=== PATIENT | male | born 1940 ===

== ENCOUNTER 2022-11-23 20:12 | Emergency (ER) | payer BC, MEDICARE ==
[2022-11-23 20:39] LABS: BASOPHILS # (AUTO) 0.1 10^3/uL (0.0-0.1); BASOPHILS % (AUTO) 1.6 %; EOSINOPHILS # (AUTO) 0.4 10^3/uL (0.0-0.7); EOSINOPHILS % (AUTO) 5.9 %; HCT - HEMATOCRIT 41.6 % (42.0-52.0); HGB - HEMOGLOBIN 13.8 g/dL (14.0-18.0); LYMPHOCYTES # (AUTO) 1.5 10^3/uL (1.5-3.5); LYMPHOCYTES % (AUTO) 24.3 %; MEAN CORPUSCULAR HEMOGLOBIN 30.6 pg (27.0-31.0); MEAN CORPUSCULAR HGB CONC 33.2 g/dL (32.0-36.0); MEAN CORPUSCULAR VOLUME 92.2 fL (80.0-94.0); MEAN PLATELET VOLUME 11.2 fL (7.4-11.4); MONOCYTES # (AUTO) 0.7 10^3/uL (0.0-1.0); MONOCYTES % (AUTO) 11.3 %; NEUTROPHILS # (AUTO) 3.5 10^3/uL (1.5-6.6); NEUTROPHILS % (AUTO) 56.4 %; PLT - PLATELET COUNT 161 10^3/uL (130-450); RED BLOOD COUNT 4.51 10^6/uL (4.70-6.10); RED CELL DISTRIBUTION WIDTH 13.8 % (12.0-15.0); WHITE BLOOD COUNT 6.2 x10^3/uL (4.8-10.8)
--- NOTE | 2022-11-23 20:42 | ED Physician Documentation ---
PD HPI ABD PAIN - Stated complaint Stated Complaint: RECTAL BLEEDING - Chief complaint Chief Complaint: Abd Pain - History obtained from History obtained from: Patient - Additional information Additional information: 82-year-old retired [employer] has a history of spontaneous esophageal perforation requiring transfusion but no surgical therapy about a year ago. Today started develop lower abdominal cramping and dark red blood per rectum around noon. No history of abdominal surgeries. No heart problems. Not anticoagulated but does take a baby aspirin daily. PD PAST MEDICAL HISTORY - Present Medications Home Medications: Ambulatory Orders Medication Instructions Recorded Confirmed Aspirin EC [Ecotrin] 81 mg PO DAILY 11/23/22 11/23/22 Ciprofloxacin HCl [Cipro] 500 mg PO BID #14 tablet 11/23/22 Levothyroxine [Synthroid] 25 mcg PO QDAC 11/23/22 11/23/22 Pantoprazole Sodium [Protonix] 40 mg PO DAILY 11/23/22 11/23/22 lisinopriL [Lisinopril] 10 mg PO DAILY 11/23/22 11/23/22 metroNIDAZOLE [Flagyl] 500 mg PO TID 7 Days #21 tablet 11/23/22 - Allergies Allergies/Adverse Reactions: Allergies Allergy/AdvReac Type Severity Reaction Status Date / Time No Known Drug Allergies Allergy Verified 11/23/22 20:22 PD ED PE NORMAL - Vitals Vital signs reviewed: Yes - General General: Alert and oriented X 3, No acute distress - Cardiac Cardiac: RRR, No murmur - Respiratory Respiratory: No respiratory distress, Clear bilaterally - Abdomen Abdomen: Normal bowel sounds, Soft, Non tender - Rectal Rectal: Other (Small amount of brown stool in the vault, no gross blood) - Neuro Neuro: Alert and oriented X 3, Normal speech Results - Vitals Vitals: Vital Signs - 24 hr 11/23/22 11/23/22 11/23/22 20:13 20:29 21:22 Temperature 37.1 C Heart Rate 91 Respiratory 17 18 16 Rate Blood Pressure 166/106 H O2 Saturation 99 11/23/22 11/23/22 11/23/22 21:40 21:58 22:40 Temperature Heart Rate 72 74 Respiratory 16 16 17 Rate Blood Pressure O2 Saturation 100 99 Oxygen O2 Source Room air - Labs Labs: Microbiology 11/23/22 20:40 Occult Blood - Final Stool Laboratory Tests 11/23/22 11/23/22 11/23/22 20:33 20:33 20:33 WBC 6.2 RBC 4.51 L Hgb 13.8 L Hct 41.6 L MCV 92.2 MCH 30.6 MCHC 33.2 RDW 13.8 Plt Count 161 MPV 11.2 Neut # (Auto) 3.5 Lymph # (Auto) 1.5 [place] # (Auto) 0.7 Eos # (Auto) 0.4 Baso # (Auto) 0.1 Absolute Nucleated RBC 0.00 Nucleated RBC % 0.0 PT 11.7 INR 1.0 Sodium Potassium Chloride Carbon Dioxide Anion Gap BUN Creatinine Estimated GFR (MDRD) Glucose Calcium Total Bilirubin AST ALT Alkaline Phosphatase Total Protein Albumin Globulin Albumin/Globulin Ratio Lipase Blood Type O POSITIVE Blood Type Recheck Antibody Screen NEGATIVE 11/23/22 11/23/22 11/23/22 20:33 21:30 22:38 WBC RBC Hgb 13.8 L Hct 42.5 MCV MCH MCHC RDW Plt Count MPV Neut # (Auto) Lymph # (Auto) [place] # (Auto) Eos # (Auto) Baso # (Auto) Absolute Nucleated RBC Nucleated RBC % PT INR Sodium 137 Potassium 3.9 Chloride 103 Carbon Dioxide 24 Anion Gap 10.0 BUN 27 H Creatinine 1.3 H Estimated GFR (MDRD) 53 L Glucose 99 Calcium 9.0 Total Bilirubin 0.8 AST 71 H ALT 22 Alkaline Phosphatase 51 Total Protein 7.6 Albumin 3.9 Globulin 3.7 Albumin/Globulin Ratio 1.1 Lipase 34 Blood Type Blood Type Recheck O POSITIVE Antibody Screen - Rads (name of study) CT of the abdomen pelvis with IV contrast showing proctitis Relevant Findings:: Final report received, EMP independent interpretation of test PD Medical Decision Making - ED course ED course: 82-year-old gentleman presents with a lower GI bleed. Both by symptomatology and exam this is most consistent with probably colitis, less likely a diverticular bleed. CT of the abdomen and pelvis is consistent with lower colitis/proctitis. I confirmed with the patient, although he has had prostate cancer, he had a prostatectomy but no radiation. Initial H&H is reassuring at 13.8/41.6. INR is normal. Mild renal dysfunction, no priors for comparison. He did not have any gross blood per rectum while in the department.Discussed with the patient, his last colonoscopy was approximately 2 years ago. Departure - Departure Disposition: 01 Home, Self Care Clinical Impression: Lower GI bleeding, Proctitis Condition: Good Record reviewed to determine appropriate education?: Yes Instructions: ED Gastroenteritis Bacterial Prescriptions: Ciprofloxacin HCl [Cipro] 500 mg PO BID #14 tablet metroNIDAZOLE [Flagyl] 500 mg PO TID 7 Days #21 tablet Comments: You are seen today for lower GI bleeding, looks like it was related to proctitis/colitis. For this we are treating with Cipro and Flagyl. Your initial hemoglobin was 13.8. That dID not change at all on recheck after 2 hours and remained 13.8. Return tomorrow for recheck if still having ongoing bleeding. Sooner if worse. Follow-up with your primary care physician, next available appointment.
[2022-11-23 20:47] LABS: PT - PROTHROMBIN TIME 11.7 secs (9.9-12.6)
[2022-11-23 20:53] LABS: ALBUMIN 3.9 g/dL (3.2-5.5); ALBUMIN/GLOBULIN RATIO 1.1 (1.0-2.2); BILIRUBIN,TOTAL 0.8 mg/dL (0.2-1.0); CREATININE 1.3 mg/dL (0.6-1.2); POTASSIUM 3.9 mmol/L (3.5-5.0); TOTAL PROTEIN 7.6 g/dL (6.7-8.2)
[2022-11-23] MEDS ORDERED: iohexoL-300 100 ML VIAL ONE (21:11)
--- NOTE | 2022-11-23 22:26 | CT Report ---
PROCEDURE: ABDOMEN/PELVIS W INDICATIONS: Rectal bleed, sounds like colitis or diverticular CONTRAST: 100mL Omni 300 TECHNIQUE: After the administration of IV contrast, 5 mm thick sections acquired from the diaphragms to the symp hysis. 5 mm thick coronal and sagittal reformats were acquired. For radiation dose reduction, the f ollowing was used: automated exposure control, adjustment of mA and/or kV according to patient size. COMPARISON: None FINDINGS: Image quality: Good There is metallic artifact in the pelvis however. Lower chest: Basal scarring/atelectasis, with possible superimposed reticular changes. Suspected gran ulomas and pleural thickening these are probably nonacute. Small hiatal hernia and fluid in the dista l esophagus. Normal heart size overall. Solid organs: Liver appears unremarkable. Gallbladder is unremarkable. No pathologic dilation of the biliary tree or pancreatic duct. No splenomegaly. No adrenal nodules. Bilateral renal cortical thinni ng, without hydronephrosis. Suspected renal cysts. Vessels and lymph nodes: No pathologic adenopathy by size criteria. No abdominal aortic aneurysm. Bowel and peritoneum: No evidence of small bowel obstruction. Possible mild rectal wall thickening. T here are also colonic diverticula. No evidence of a drainable abscess or pathologic ascites. Body wall: Anterior abdominal wall postsurgical changes. Pelvis: Obscured by metallic artifact. Small fat-containing left inguinal hernia. Penile prosthesis i mplants. Bladder is obscured. Prostate is obscured. Bones: Bilateral hip arthroplasties. Scattered degenerative changes. IMPRESSION: Possible infectious or inflammatory proctitis. There are also colonic diverticula. Please correlate w ith age-appropriate colonoscopy results. Other findings as imaging limitations as above. Reviewed by: Bradley Valencia MD on 11/23/2022 10:25 PM PDT Approved by: Bradley Valencia MD on 11/23/2022 10:25 PM PDT Station ID: [id number]
[2022-11-23] MEDS ORDERED: metroNIDAZOLE 250 MG TABLET PO STA (22:40)
[2022-11-23] MEDS ORDERED: CIPROFLOXACIN 250 MG TABLET PO STA (22:40)
[2022-11-23 22:41] LABS: HCT - HEMATOCRIT 42.5 % (42.0-52.0); HGB - HEMOGLOBIN 13.8 g/dL (14.0-18.0)
[2022-11-23 23:05] VITALS: BP 157/108
[2022-11-24] MEDS ORDERED: iohexoL-300 100 ML VIAL IVP ONE (03:06)
== END 2022-11-23 23:05 | disposition home or self-care (01) ==
LOC: ED 20:12
DX: K92.2 Gastrointestinal hemorrhage, unspecified (principal); K62.89 Other specified diseases of anus and rectum; N28.9 Disorder of kidney and ureter, unspecified
CPT/HCPCS: 36415; 74177; 80053; 82272; 83690; 85014; 85018; 85025; 85610; 86850; 86900; 86901; 99284; A9270; Q9967

== ENCOUNTER 2023-01-03 17:26 | Emergency (ER) | payer MEDICARE, BC ==
[2023-01-03 17:50] LABS: BASOPHILS # (AUTO) 0.1 10^3/uL (0.0-0.1); BASOPHILS % (AUTO) 0.5 %; EOSINOPHILS # (AUTO) 0.2 10^3/uL (0.0-0.7); EOSINOPHILS % (AUTO) 1.2 %; HCT - HEMATOCRIT 45.6 % (42.0-52.0); HGB - HEMOGLOBIN 14.9 g/dL (14.0-18.0); LYMPHOCYTES # (AUTO) 0.6 10^3/uL (1.5-3.5); LYMPHOCYTES % (AUTO) 4.4 %; MEAN CORPUSCULAR HEMOGLOBIN 30.3 pg (27.0-31.0); MEAN CORPUSCULAR HGB CONC 32.7 g/dL (32.0-36.0); MEAN CORPUSCULAR VOLUME 92.7 fL (80.0-94.0); MEAN PLATELET VOLUME 11.5 fL (7.4-11.4); MONOCYTES # (AUTO) 1.5 10^3/uL (0.0-1.0); MONOCYTES % (AUTO) 10.9 %; NEUTROPHILS # (AUTO) 11.3 10^3/uL (1.5-6.6); NEUTROPHILS % (AUTO) 82.6 %; PLT - PLATELET COUNT 165 10^3/uL (130-450); RED BLOOD COUNT 4.92 10^6/uL (4.70-6.10); RED CELL DISTRIBUTION WIDTH 13.9 % (12.0-15.0); WHITE BLOOD COUNT 13.7 x10^3/uL (4.8-10.8)
--- NOTE | 2023-01-03 17:55 | ED Physician Documentation ---
PD HPI ABD PAIN - Stated complaint Stated Complaint: VOMITING - Chief complaint Chief Complaint: Abd Pain - History obtained from History obtained from: Patient, Family - History of Present Illness Timing - onset: Today Timing - duration: Hours (3) Timing - details: Abrupt onset Pain level max: 10 Pain level now: 6 Quality: Aching, Dull Location: All over / everywhere Radiation: No: Chest, , Lower back, Left flank, Left shoulder, Right flank, Right shoulder, Upper back Improved by: Vomiting Worsened by: Other (nothing) Associated symptoms: Nausea, Vomiting. No: Fever, Hematemesis, Diarrhea, Constipation, Melena, Hematochezia, Dysuria, Hematuria Recently seen: Not recently seen - Additional information Additional information: 82-year-old male presents the emergency department with sudden onset abdominal pain followed by multiple episodes of vomiting. No diarrhea or constipation. He has had a history of an appendectomy in the past, radical prostatectomy from a [employer] [place] robot and a umbilical hernia with mesh repair. No fevers. No chills. No blood in the vomit. Review of Systems Constitutional: denies: Fever, Chills Respiratory: denies: Cough GI: reports: Nausea, Vomiting. denies: Diarrhea, Hematemesis, Bloody / black stool PD PAST MEDICAL HISTORY - Past Medical History Cardiovascular: Hypertension Respiratory: None Neuro: None Endocrine/Autoimmune: HyPOthyroidism GI: GERD : Benign prostate hypertrophy HEENT: None Psych: None Musculoskeletal: None Derm: None - Past Surgical History Past Surgical History: Yes Ortho: Hip replacement - Present Medications Home Medications: Ambulatory Orders Medication Instructions Recorded Confirmed Aspirin EC [Ecotrin] 81 mg PO DAILY 11/23/22 01/03/23 Ciprofloxacin HCl [Cipro] 500 mg PO BID #14 tablet 11/23/22 Levothyroxine [Synthroid] 25 mcg PO QDAC 11/23/22 01/03/23 Pantoprazole Sodium [Protonix] 40 mg PO DAILY 11/23/22 01/03/23 lisinopriL [Lisinopril] 10 mg PO DAILY 11/23/22 01/03/23 metroNIDAZOLE [Flagyl] 500 mg PO TID 7 Days #21 tablet 11/23/22 - Allergies Allergies/Adverse Reactions: Allergies Allergy/AdvReac Type Severity Reaction Status Date / Time No Known Drug Allergies Allergy Verified 01/03/23 17:30 - Social History Does the pt smoke?: No Smoking Status: Never smoker Does the pt drink ETOH?: No Does the pt have substance abuse?: No - Immunizations Immunizations are current?: Yes - POLST Patient has POLST: No PD ED PE NORMAL - Vitals Vital signs reviewed: Yes - General General: Alert and oriented X 3, No acute distress - HEENT HEENT: Moist mucous membranes - Neck Neck: Supple, no meningeal sign - Cardiac Cardiac: RRR - Respiratory Respiratory: No respiratory distress, Clear bilaterally - Abdomen Abdomen: Soft, Non tender, Other (Mild distention, tympanic to percussion) - Derm Derm: Warm and dry - Extremities Extremities: No edema, No calf tenderness / cord - Neuro Neuro: Alert and oriented X 3 - Psych Psych: Normal mood, Normal affect Results - Vitals Vitals: Vital Signs - 24 hr 01/03/23 01/03/23 17:30 20:07 Temperature 36.5 C 36.5 C Heart Rate 88 86 Respiratory 16 16 Rate Blood Pressure 150/77 H 140/72 H O2 Saturation 98 100 Oxygen O2 Source Room air - Labs Labs: Laboratory Tests 01/03/23 01/03/23 01/03/23 17:36 17:42 17:42 WBC 13.7 H RBC 4.92 Hgb 14.9 Hct 45.6 MCV 92.7 MCH 30.3 MCHC 32.7 RDW 13.9 Plt Count 165 MPV 11.5 H Neut # (Auto) 11.3 H Lymph # (Auto) 0.6 L [place] # (Auto) 1.5 H Eos # (Auto) 0.2 Baso # (Auto) 0.1 Absolute Nucleated RBC 0.00 Nucleated RBC % 0.0 Sodium 141 Potassium 4.1 Chloride 107 Carbon Dioxide 26 Anion Gap 8.0 BUN 32 H Creatinine 1.2 Estimated GFR (MDRD) 58 L Glucose 122 H Calcium 9.2 Total Bilirubin 0.7 AST 65 H ALT 26 Alkaline Phosphatase 58 Total Protein 8.3 H Albumin 4.4 Globulin 3.9 Albumin/Globulin Ratio 1.1 Lipase 55 H Urine Color YELLOW Urine Clarity CLEAR Urine pH 5.5 Ur Specific [place] >=1.030 H Urine Protein NEGATIVE Urine Glucose (UA) NEGATIVE Urine Ketones NEGATIVE Urine Occult Blood NEGATIVE Urine Nitrite NEGATIVE Urine Bilirubin NEGATIVE Urine Urobilinogen 0.2 (NORMAL) Ur Leukocyte Esterase NEGATIVE Ur Microscopic Review NOT INDICATED Urine Culture Comments NOT INDICATED - Rads (name of study) CT abdomen pelvis Relevant Findings:: Final report received, See rad report PD Medical Decision Making - ED course Complexity details: reviewed results, re-evaluated patient, considered differential, d/w patient, d/w family ED course: 82-year-old male with abdominal pain and vomiting prior to arrival. Symptoms resolved prior to arrival. Mildly elevated white blood cell count at 13,700. CBC otherwise does not show any significant acute abnormalities. ER abdominal panel is relatively unremarkable. He is tolerating p.o. without difficulty here. Abdomen is soft, nontender nondistended on serial exam. No acute findings on abdomen pelvis CT. Reviewed the findings of enlarged lymph nodes in the upper abdomen as well as a small pulmonary nodule and need for follow-up with his PCP with the patient and his significant other. Patient and family counseled regarding signs and symptoms for which I believe and urgent re- evaluation would be necessary. Patient with good understanding of and agreement to plan and is comfortable going home at this time This document was made in part using voice recognition software. While efforts are made to proofread this document, sound alike and grammatical errors may occur. Departure - Departure Disposition: Home, Self Care Clinical Impression: Vomiting Qualifiers: Vomiting type: unspecified Nausea presence: with nausea Qualified Code(s): R11.2 - Nausea with vomiting, unspecified Abdominal pain Qualifiers: Abdominal location: generalized Qualified Code(s): R10.84 - Generalized abdominal pain Condition: Good Instructions: ED Diet Vomiting Diarrhea, ED Nausea Vomiting, ED Abdominal Pain Unkn Cause Male Follow-Up: Your,doctor in 3 days [Other] Comments: Please follow-up with your doctor for further care. Please return if you worsen. Your CT scan does not show any acute abnormalities today. Your pain and nausea and vomiting have all resolved. Your CT scan read is below, there are some enlarged upper abdominal lymph nodes that will need follow-up with your doctor. You also have a small pulmonary nodule that needs surveillance and follow-up with your doctor as well. Please return if you worsen. Your full CT scan report is below to go over with your doctor. PROCEDURE: ABDOMEN/PELVIS W INDICATIONS: diffuse abd pain CONTRAST: 100mL Omni 300 TECHNIQUE: After the administration of IV contrast, 5 mm thick sections acquired from the diaphragms to the symphysis. 5 mm thick coronal and sagittal reformats were acquired. For radiatio n dose reduction, the following was used: automated exposure control, adjustment of mA and/or kV according to patient size. COMPARISON: CT abdomen and pelvis, 11/23/2026 FINDINGS: Image quality: Excellent. Lung bases and heart: There is a 5 nodule in the right middle lobe. Subpleural intralobular septal thickening and mild pulmonary fibrosis in the right lower lobe. Small hiatal hernia. Liver: No solid mass. Gallbladder and biliary tree: Gallbladder is normal. No biliary dilation. Spleen: No splenomegaly. Pancreas: No pancreatic ductal dilation. Adrenals: No adrenal nodule. Kidneys and ureters: No hydronephrosis. No renal cystic lesion which requires follow up. Low-density renal cortical nodules are present bilaterally, most likely renal cysts. No solid mass. Bowel and peritoneum: No bowel distension. No pathologic free fluid. Mild diverticulosis without diverticulitis. Lymph nodes: Moderately enlarged upper abdominal lymph nodes are seen measuring up to 1.3 cm. Vessels: No infrarenal aortic aneurysm. PELVIS Reproductive organs: There is a penile implant.. Prostate is obscured by metallic artifacts from bilateral hip implants. Bladder: No abnormal wall thickening, accounting for underdistension. Pelvic lymph nodes: No pelvic adenopathy by size criteria. Bones: No aggressive osseous abnormality. Degenerative changes noted in lumbar spine. Bilateral hip arthroplasties. Other: Small fat-containing left inguinal hernia. IMPRESSION: 1. No acute intra-abdominal or pelvic process. 2. Diverticulosis without acute diverticulitis. 3. Mild upper abdominal lymphadenopathy. This finding is nonspecific and may be secondary to inflammatory, infectious or neoplastic etiologies. Recommend clinical correlation and imaging follow-up as clinically indicated. 4. Small hiatal hernia. Discharge Date/Time: 01/03/23 20:07
[2023-01-03 17:57] LABS: BILIRUBIN,URINE NEGATIVE (NEGATIVE); GLUCOSE, URINE (UA) NEGATIVE (NEGATIVE); KETONES,URINE (UA) NEGATIVE (NEGATIVE); LEUKOCYTE ESTERASE, URINE NEGATIVE (NEGATIVE); NITRITE,URINE NEGATIVE (NEGATIVE); OCCULT BLOOD,URINE NEGATIVE (NEGATIVE); PH,URINE 5.5 PH (5.0-7.5); PROTEIN,URINE NEGATIVE (NEGATIVE); UROBILINOGEN,URINE 0.2 (NORMAL) E.U./dL (NORMAL)
[2023-01-03 18:01] LABS: ALBUMIN 4.4 g/dL (3.2-5.5); ALBUMIN/GLOBULIN RATIO 1.1 (1.0-2.2); BILIRUBIN,TOTAL 0.7 mg/dL (0.2-1.0); CALCIUM 9.2 mg/dL (8.5-10.3); CREATININE 1.2 mg/dL (0.6-1.2); POTASSIUM 4.1 mmol/L (3.5-5.0); TOTAL PROTEIN 8.3 g/dL (6.7-8.2)
[2023-01-03] MEDS ORDERED: iohexoL-300 100 ML VIAL ONE (18:02)
[2023-01-03 18:03] LABS: CLARITY,URINE CLEAR (CLEAR)
--- NOTE | 2023-01-03 19:24 | CT Report ---
PROCEDURE: ABDOMEN/PELVIS W INDICATIONS: diffuse abd pain CONTRAST: 100mL Omni 300 TECHNIQUE: After the administration of IV contrast, 5 mm thick sections acquired from the diaphragms to the symp hysis. 5 mm thick coronal and sagittal reformats were acquired. For radiation dose reduction, the f ollowing was used: automated exposure control, adjustment of mA and/or kV according to patient size. COMPARISON: CT abdomen and pelvis, 11/23/2026 FINDINGS: Image quality: Excellent. Lung bases and heart: There is a 5 nodule in the right middle lobe. Subpleural intralobular septal th ickening and mild pulmonary fibrosis in the right lower lobe. Small hiatal hernia. Liver: No solid mass. Gallbladder and biliary tree: Gallbladder is normal. No biliary dilation. Spleen: No splenomegaly. Pancreas: No pancreatic ductal dilation. Adrenals: No adrenal nodule. Kidneys and ureters: No hydronephrosis. No renal cystic lesion which requires follow up. Low-density renal cortical nodules are present bilaterally, most likely renal cysts. No solid mass. Bowel and peritoneum: No bowel distension. No pathologic free fluid. Mild diverticulosis without dive rticulitis. Lymph nodes: Moderately enlarged upper abdominal lymph nodes are seen measuring up to 1.3 cm. Vessels: No infrarenal aortic aneurysm. PELVIS Reproductive organs: There is a penile implant.. Prostate is obscured by metallic artifacts from bila teral hip implants. Bladder: No abnormal wall thickening, accounting for underdistension. Pelvic lymph nodes: No pelvic adenopathy by size criteria. Bones: No aggressive osseous abnormality. Degenerative changes noted in lumbar spine. Bilateral hip a rthroplasties. Other: Small fat-containing left inguinal hernia. IMPRESSION: 1. No acute intra-abdominal or pelvic process. 2. Diverticulosis without acute diverticulitis. 3. Mild upper abdominal lymphadenopathy. This finding is nonspecific and may be secondary to inflamma tory, infectious or neoplastic etiologies. Recommend clinical correlation and imaging follow-up as cl inically indicated. 4. Small hiatal hernia. Reviewed by: Maximus Matias MD on 01/03/2023 7:23 PM PDT Approved by: Maximus Matias MD on 01/03/2023 7:23 PM PDT Station ID: [id number]
[2023-01-03 20:08] VITALS: BP 140/72
[2023-01-03] MEDS ORDERED: iohexoL-300 100 ML VIAL IVP ONE (23:55)
== END 2023-01-03 20:07 | disposition home or self-care (01) ==
LOC: ED 17:26
DX: R11.2 Nausea with vomiting, unspecified (principal); R10.9 Unspecified abdominal pain; I10 Essential (primary) hypertension
CPT/HCPCS: 36415; 74177; 80053; 81003; 83690; 85025; 99283; 99284; Q9967; 81001; 87086

== ENCOUNTER 2023-03-22 21:40 | Outpatient (CLI) | payer MEDICARE, BC | END 2023-03-22 21:41 | disposition critical access hospital (66) | LOC: EMS 21:40 | DX: R55 Syncope and collapse (principal); R25.2 Cramp and spasm; R42 Dizziness and giddiness | CPT/HCPCS: A0425; A0427 ==

== ENCOUNTER 2023-03-22 21:56 | Inpatient (IN) | payer MEDICARE, BC ==
[2023-03-22] MEDS ORDERED: SODIUM CHLORIDE 0.9% 1,000 ML IV STA ×2 (22:03→22:05)
--- NOTE | 2023-03-22 22:04 | ED Physician Documentation ---
PD HPI SYNCOPE - Stated complaint Stated Complaint: SYNCOPE - History obtained from History obtained from: Patient - Additional information Additional information: He was sitting at the table with his and remarks that he did not feel well and then had a syncopal episode. Sounds like it was brief. He denies chest pain or trouble breathing. Feels back to normal now. States he has passed out before but is vague on the details. Denies any history of heart problems. Independent hx from by phone at [phone]: Slow to ground; completely unresponsive x minute. Possibly dehydrated, not drinking much H2O. She is concerned for covid/flu as has been around kids who have been ill, but he has not had fever or URI sx. PD PAST MEDICAL HISTORY - Past Medical History Cardiovascular: Hypertension Respiratory: None Neuro: None Endocrine/Autoimmune: HyPOthyroidism GI: GERD : Benign prostate hypertrophy HEENT: None Psych: None Musculoskeletal: None Derm: None - Past Surgical History Past Surgical History: Yes Ortho: Hip replacement - Present Medications Home Medications: Ambulatory Orders Medication Instructions Recorded Confirmed Aspirin EC [Ecotrin] 81 mg PO DAILY 11/23/22 03/22/23 Levothyroxine [Synthroid] 25 mcg PO QDAC 11/23/22 03/22/23 Pantoprazole Sodium [Protonix] 40 mg PO DAILY 11/23/22 03/22/23 lisinopriL [Lisinopril] 10 mg PO DAILY 11/23/22 03/22/23 LORazepam [Lorazepam] 2 mg PO HS 03/22/23 03/22/23 - Allergies Allergies/Adverse Reactions: Allergies Allergy/AdvReac Type Severity Reaction Status Date / Time No Known Drug Allergies Allergy Verified 03/22/23 22:10 - Social History Does the pt smoke?: No Smoking Status: Never smoker Does the pt drink ETOH?: No Does the pt have substance abuse?: No - Immunizations Immunizations are current?: Yes - POLST Patient has POLST: No PD ED PE NORMAL - Vitals Vital signs reviewed: Yes - General General: Alert and oriented X 3, No acute distress - HEENT HEENT: PERRL, EOMI - Neck Neck: Supple, no meningeal sign, No bony TTP - Cardiac Cardiac: RRR, No murmur - Respiratory Respiratory: No respiratory distress, Clear bilaterally - Abdomen Abdomen: Non tender - Extremities Extremities: No edema, No calf tenderness / cord - Neuro Neuro: Alert and oriented X 3, Normal speech Eye Opening: Spontaneous Motor: Obeys Commands Verbal: Oriented GCS Score: 15 - Psych Psych: Normal mood, Normal affect Results - Vitals Vitals: Vital Signs - 24 hr 03/22/23 03/22/23 22:03 23:00 Temperature 37 C Heart Rate 94 84 Respiratory 16 19 Rate Blood Pressure 129/65 120/79 O2 Saturation 96 94 Oxygen O2 Source Room air - EKG (time done) 2200 EKG releavant findings:: EKG personally interpreted by author of this note. Relevant findings are: Rate: Rate (enter#) (92) Rhythm: NSR (with bigeminy) Intervals: RBBB, Other (LAFB) Ischemia: Normal ST segments Computer interpretation: Agree with computer - Labs Labs: Laboratory Tests 03/22/23 03/22/23 03/22/23 22:06 22:06 22:15 WBC 5.8 RBC 4.07 L Hgb 12.6 L Hct 37.7 L MCV 92.6 MCH 31.0 MCHC 33.4 RDW 14.5 Plt Count 143 MPV 11.4 Neut # (Auto) 4.3 Lymph # (Auto) 0.5 L [place] # (Auto) 0.9 Eos # (Auto) 0.0 Baso # (Auto) 0.0 Absolute Nucleated RBC 0.00 Nucleated RBC % 0.0 Sodium 137 Potassium 3.9 Chloride 107 Carbon Dioxide 22 Anion Gap 8.0 BUN 24 H Creatinine 1.4 H Estimated GFR (MDRD) 48 L Glucose 139 H Calcium 8.8 Magnesium 1.6 L Total Bilirubin 0.9 AST 61 H ALT 22 Alkaline Phosphatase 52 Troponin I High Sens 22.8 H* Total Protein 7.4 Albumin 3.7 Globulin 3.7 Albumin/Globulin Ratio 1.0 Nasal Adenovirus (PCR) NOT DETECTED Nasal B. parapertussis DNA (PCR) NOT DETECTED Nasal Coronavir 229E PCR NOT DETECTED Nasal Coronavir HKU1 PCR NOT DETECTED Nasal Coronavir NL63 PCR NOT DETECTED Nasal Coronavir OC43 PCR NOT DETECTED Nasal Enterovir/Rhinovir PCR NOT DETECTED Nasal Influenza B PCR NOT DETECTED Nasal Influenza A PCR NOT DETECTED Nasal Parainfluen 1 PCR NOT DETECTED Nasal Parainfluen 2 PCR NOT DETECTED Nasal Parainfluen 3 PCR NOT DETECTED Nasal Parainfluen 4 PCR NOT DETECTED Nasal RSV (PCR) NOT DETECTED Nasal B.pertussis DNA PCR NOT DETECTED Nasal C.pneumoniae (PCR) NOT DETECTED [place] Human Metapneumo PCR NOT DETECTED Nasal M.pneumoniae (PCR) NOT DETECTED Nasal SARS-CoV-2 (PCR) DETECTED A PD Medical Decision Making - ED course ED course: CBC showing hemoglobin of 12.6. This is down a bit from prior values. Indices are normal. No white count. CMP showing some prerenal azotemia but this looks fairly chronic looking at prior values. He has a mildly elevated AST, also chronic. Magnesium level on the low side and will replete IV given the ectopy he is having. His troponin is mildly elevated at 22. This could be because of his renal function or he is having bigeminy here. The concern given his age and the abnormal EKG would be for an arrhythmia. I think he should probably come in to observation for serial troponins, echo in the morning and cardiac monitoring and telehealth consultation was placed at 10:36 PM. I did talk with his by the phone who felt that he was probably just dehydrated, I voiced my concern that there could be an arrhythmia or heart probl em and she seems skeptical. That said she was agreeable to him coming in the hospital overnight. He scores 4 points on the [place] syncope risk score and he scores "not low risk" for the [place] syncope score. I presented the case to Dr. Davison at 10:46 PM. He requested a second troponin be done and he is happy to admit if the troponins are stable but would recommend transfer if there is a significant uptrending in the troponin. Signout to Dr. Diana at 11 PM shift change pending a midnight troponin. Of note his COVID test did come a positive, in deference to the of course. I am not sure when he actually got symptomatic though so he does not really fit any criteria for treatment per se since he does not have a fever or URI symptoms. Departure - Departure Disposition: ED Place in Observation Clinical Impression: Syncope Condition: Stable
[2023-03-22 22:14] LABS: BASOPHILS % (AUTO) 0.7 %; EOSINOPHILS % (AUTO) 0.3 %; HCT - HEMATOCRIT 37.7 % (42.0-52.0); HGB - HEMOGLOBIN 12.6 g/dL (14.0-18.0); LYMPHOCYTES # (AUTO) 0.5 10^3/uL (1.5-3.5); LYMPHOCYTES % (AUTO) 8.5 %; MEAN CORPUSCULAR HGB CONC 33.4 g/dL (32.0-36.0); MEAN CORPUSCULAR VOLUME 92.6 fL (80.0-94.0); MEAN PLATELET VOLUME 11.4 fL (7.4-11.4); MONOCYTES # (AUTO) 0.9 10^3/uL (0.0-1.0); MONOCYTES % (AUTO) 15.7 %; NEUTROPHILS # (AUTO) 4.3 10^3/uL (1.5-6.6); NEUTROPHILS % (AUTO) 74.6 %; PLT - PLATELET COUNT 143 10^3/uL (130-450); RED BLOOD COUNT 4.07 10^6/uL (4.70-6.10); RED CELL DISTRIBUTION WIDTH 14.5 % (12.0-15.0); WHITE BLOOD COUNT 5.8 x10^3/uL (4.8-10.8)
[2023-03-22 22:26] LABS: ALBUMIN 3.7 g/dL (3.2-5.5); BILIRUBIN,TOTAL 0.9 mg/dL (0.2-1.0); CALCIUM 8.8 mg/dL (8.5-10.3); CREATININE 1.4 mg/dL (0.6-1.2); MAGNESIUM 1.6 mg/dL (1.7-2.8); POTASSIUM 3.9 mmol/L (3.5-5.0); TOTAL PROTEIN 7.4 g/dL (6.7-8.2)
[2023-03-22] MEDS ORDERED: MAGNESIUM SULFATE 2 GRAM 2 GM/50 ML BAG IV ONE (22:30)
[2023-03-22 22:34] LABS: TROPONIN I HIGH SENSITIVITY 22.8 ng/L (2.3-19.7)
[2023-03-22 23:16] LABS: CORONAVIRUS 229E-RESP PCR NOT DETECTED; CORONAVIRUS HKU1-RESP PCR NOT DETECTED; CORONAVIRUS NL63-RESP PCR NOT DETECTED; CORONAVIRUS OC43-RESP PCR NOT DETECTED
[2023-03-22 23:19] LABS: B. PARAPERTUSSIS- RESP PCR PAN NOT DETECTED; B. PERTUSSIS- RESP PCR PANEL NOT DETECTED; C. PNEUMONIAE- RESP PCR PANEL NOT DETECTED; HUMAN METAPNEUMOVIRUS NOT DETECTED; INFLUENZA A- RESP PCR PANEL NOT DETECTED; INFLUENZA B - RESP PCR PANEL NOT DETECTED; M. PNEUMONIAE- RESP PCR PANEL NOT DETECTED; PARAINFLUENZA VIRUS 1 NOT DETECTED; PARAINFLUENZA VIRUS 2 NOT DETECTED; PARAINFLUENZA VIRUS 3 NOT DETECTED; PARAINFLUENZA VIRUS 4 NOT DETECTED; RHINOVIRUS/ENTEROVIRUS NOT DETECTED; RSV- RESP PCR PANEL NOT DETECTED; SARS-CoV-2 -RESP PCR PANEL DETECTED
[2023-03-23] MEDS ORDERED: SODIUM CHLORIDE FLUSH 0.9% 10 ML SYRINGE IVP PRN ×3 (05:19→11:50)
--- NOTE | 2023-03-23 08:21 | HISTORY & PHYSICAL EXAMINATION ---
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 There is no past cardiac history. Patient has been exposed to his step- grandchildren who have had URIs and who have tested pos for COVID. Yesterday after walking up the stairs from the basement, while sitting at the table he had sudden syncope, and slumped out of his chair down to the ground. The was present and witnessed it. She called 911. Vital signs were stable at the scene with a heart rate of 98 and a blood pressure of 136/85. He received IV saline on route. The called the ED provider and gave details of the event: He slumped and had no trauma when reached the floor, he was out for approximately 1 minute. The thinks he may have caught the COVID infection from the step- grandchildren and that he may also be dehydrated. In the ED the patient tested positive for COVID. He has CKD and has approximately the same abnormal BUN/creatinine as before. He was to be admitted last night by the telemedicine doctor but our [facility] EMR was entirely down so only verbal orders were given and only partial done. I am the daytime hospitalist now admitting the patient. Patient is a poor historian. He reports he had syncope in the past and was found to have a perforated gastric ulcer. Ever since then he gets "lightheaded when he walks up the stairs, this is improved if he tilts his head backward". 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 He was taken to the ER, he states no cause, was found and he was referred to a Senior Business Architect for "arrhythmias". He never went for that appointment because he then moved out of state and has not seen a business support specialist locally. I then called his by phone and got more details. 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 He has word finding difficulty, which the describes and I witnessed. He has recently had a mild cough with no sputum and was behaving very weak yesterday when this syncopal event happened. She was trying to make him drink extra fluids but he was actually refusing liquids. We discussed his CODE STATUS and he wants to be a DNR. History - Past Medical History Cardiovascular: reports: Hypertension, Other (One episode of syncope 9 mos ago, while walking, was to see Cardiology but pt moved away ) Respiratory: reports: Other (Patiently told that he has enlarged lymph nodes in the chest and PCP is worried it is lymphoma but no tissue biopsy obtained yet, a F/U CT chest is pending.) Neuro: reports: CVA (2 CVAs, per , that have caused poor memory) Endocrine/Autoimmune: reports: HyPOthyroidism GI: reports: GERD, Other (Ruptured, bleeding gastric ulcer) : reports: Other (Prostate CA) HEENT: reports: Chronic hearing loss Psych: reports: None Musculoskeletal: reports: None Derm: reports: None MRSA Hx?: No - Past Surgical History General: reports: Other (Repaired perforated gastric ulcer) Ortho: reports: Hip replacement /MILL TURNER: reports: Other (TURP and spincter repair) - Family & Social History Living arrangement: At home Living Situation: With spouse/s.o. Social History Notes: No cigarette smoking. No alcohol intake. This is his 2nd marriage. 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 He has lived on [facility] for over 20 years. He used to work in [employer] for 2 weeks then have off for 2 wks. - Substance History Use: Uses substance without health or social issues: NONE - POLST Patient has POLST: No Meds/Allgy - Home Medications Home Medications: Ambulatory Orders Medication Instructions Recorded Confirmed Aspirin EC [Ecotrin] 81 mg PO DAILY 11/23/22 03/22/23 Levothyroxine [Synthroid] 25 mcg PO QDAC 11/23/22 03/22/23 Pantoprazole Sodium [Protonix] 40 mg PO DAILY 11/23/22 03/22/23 lisinopriL [Lisinopril] 10 mg PO DAILY 11/23/22 03/22/23 LORazepam [Lorazepam] 2 mg PO HS 03/22/23 03/22/23 - Allergies Allergies/Adverse Reactions: Allergies Allergy/AdvReac Type Severity Reaction Status Date / Time No Known Drug Allergies Allergy Verified 03/22/23 22:10 Review of Systems - Cardiovascular Cariovascular: reports: Lightheadedness (only when he is "climbing stairs" and is improved by tilting his head back.) - Respiratory Respiratory: reports: Cough - Gastrointestinal Gastrointestinal: reports: Poor appetite - Neurological Neurological: reports: Memory problems, Other (word-finding difficulty) - All Other Systems All Other Systems: reports: Reviewed and negative (Reviewed with both the patient and with his ) Exam - Vital Signs Reviewed Vital Signs: Yes Vital Signs: Vital Signs x48h Temp Pulse Pulse Resp BP Pulse Ox 03/23/23 08:13 37.4 C 81 18 97 03/23/23 02:45 36.9 C 77 18 140/84 H 94 03/23/23 00:41 100 20 150/100 H 96 - Physical Exam General Appearance: positive: No acute distress, Alert Eyes Bilateral: positive: Normal inspection, EOMI ENT: positive: Dry mucous membranes, Other ([place]) Neck: positive: Nml inspection, No JVD Respiratory: positive: No respiratory distress, Breath sounds nml Cardiovascular: positive: Regular rate & rhythm, No murmur Abdomen: positive: Non-tender, Nml bowel sounds, No distention Skin: positive: Warm, Dry Extremities: positive: Non-tender, No pedal edema Neurologic/Psychiatric: positive: Oriented x3, Other (Poor memory, word finding difficulty.) Conclusion/Plan - Problem List (1) Syncope Conclusion/Plan: Patient had a brief preceding lightheaded feeling, since he had just "climbed stairs, before sitting down. He has had this lightheaded feeling when climbing stairs for 1 to 2 years, which is improved when he tilts his head back. This seems like a description of vertigo or vestibular abnormality There is no description from the that he complained of anything immediately before he slumped and slipped out of his chair and had syncope. Given the information of exposure to grandchildren with URI and his positive COVID status, I suspect the most likely reason for the syncope was volume depletion and orthostasis. Two troponins are flat therefore he has ruled out for ACS Plan: Admit to Observation status, place on telemetry to watch for arrhythmias Obtain orthostatic vital signs. If he has significant orthostasis then I will put a hold on his usual BP meds Obtain an Echocardiogram Give IV saline Follow BMP daily (2) COVID-19 Conclusion/Plan: Presumably he caught COVID from his grandchildren who have a URI Presumably this has caused some dehydration The patient does not have desaturations to warrant any Remdesivir or cough to qualify for Paxlovid. Plan: Remain in droplet and contact isolation in the room Obtain a chest x-ray, none was done in ER>> A stat chest x-ray is right was ordered and showed atelectasis, no infiltrates. I will order incentive spirometry and Mucinex p.o. twice daily (3) PVCs (premature ventricular contractions) Conclusion/Plan: The admission EKG shows sinus rhythm with ventricular bigeminy. This is of concern and that he may have had a significant ventricular arrhythmia that did cause his syncope. He has had troponins that are flat ruling out an ACS event. He does have a low magnesium which has been replaced (all labs were reviewed) Plan: Obtain an Echo Follow his electrolytes, magnesium and calcium daily and correct if low (4) CKD (chronic kidney disease) Conclusion/Plan: I reviewed his EMR. He usually runs a creatinine of 1.2-1.4 At admission his creatinine was 1.4 Plan: Avoid nephrotoxins Continue with IV NS Monitor BMP daily (5) Hypomagnesemia Conclusion/Plan: This may be the cause of the ventricular bigeminy and may cause a different arrhythmia Mg was replaced Plan: Follow Mg daily, replace if low - Lab Results Fish Bones: 03/22/23 22:06 03/23/23 12:09 - Diagnostic Imaging Results Diagnostic Imaging Results: positive: Final report reviewed - EKG Results EKG Findings: Normal sinus rhythm with ventricular bigeminy. Right bundle branch block. LAFB. No old EKG available for comparison.
[2023-03-23 08:50] LABS: CALCIUM 8.4 mg/dL (8.5-10.3); CREATININE 1.1 mg/dL (0.6-1.2); POTASSIUM 3.8 mmol/L (3.5-5.0)
--- NOTE | 2023-03-23 08:57 | ED Physician Documentation ---
ED Addendum - Addendum Addendum: 03/23/23 08:55 I received sign out on this patient from Dr. Zurita; please see his note for complete H+P. In brief, patient had syncopal episode this evening. Initial troponin was mildly elevated (22.8). Ventricular bigeminy on EKG as well as on telemetric monitoring. Dr. Zurita contacted telehealth for admission, but telehealth physician requests 2-hour repeat troponin with plan to admit if no significant change on the 2-hour repeat. This test is pending at the time of turnover of care to me. The second troponin result is 21.1. Telehealth is recontacted but they informed my PROGRAM MANAGER SLP that their shift will be ending soon and ask that I put in a new consult after 1 AM when the oncoming telehealth physician will be taking over. I discussed this case with the telehealth physician at 1:25 AM. Early in our discussion, I mentioned that [employer] will be going down within five minutes ( scheduled for 1:30 AM downtime), and the telehealth physician inquires how to provide orders if [employer] is down. He also expresses discomfort with not being able to see the notes and test results himself. I reassured him that I have the other physician's notes printed and can discuss them with him along with the test results. However, I needed to contact charge nurse regarding how to proceed with orders during downtime. I d/w charge nurse and she says telehealth can provide orders over the phone to her. Telehealth was recontacted and I discussed the patient's H+P and test results. Telehealth subsequently provided orders over the phone to the charge nurse.
[2023-03-23] MEDS ORDERED: lisinopriL 5 MG TABLET PO SCH (09:00)
[2023-03-23] MEDS ORDERED: ASPIRIN EC 81 MG TABLET PO SCH (09:00)
--- NOTE | 2023-03-23 09:41 | XRAY Report ---
PROCEDURE: Chest 1 View X-Ray INDICATIONS: COVID (+), syncope dehydration TECHNIQUE: One view of the chest was acquired. COMPARISON: None. FINDINGS: Surgical changes and devices: None. Lungs and pleura: No pleural effusions or pneumothorax. Mild right greater than left basilar hazy pu lmonary opacities. Mediastinum: Mediastinal contours appear normal. Heart size is normal. Bones and chest wall: No suspicious bony lesions. Overlying soft tissues appear unremarkable. IMPRESSION: Mild right greater than left basilar pulmonary opacities, atypical infection is in the differential v ersus atelectasis. Reviewed by: Zackary Flor MD on 03/23/2023 9:40 AM PDT Approved by: Zackary Flor MD on 03/23/2023 9:40 AM PDT Station ID: [id number]
--- NOTE | 2023-03-23 10:42 | PHARMACY PROGRESS NOTE ---
- Best Possible Medication History Admit Date and Time: 03/23/23 0547 Processed by: Nursing As the person ultimately responsible for medication therapy, providers are able to order a medication from an existing home medication list in [facility] via the "Reconcile Routine" prior to Confirmation of that medication by application support consultant. Such practice is discouraged except when the physician, in their clinical judgment, deems that a medical need exists for a medication without regard to previous use.
[2023-03-23] MEDS ORDERED: SODIUM CHLORIDE 0.9% 1,000 ML IV SCH (11:00)
[2023-03-23] MEDS ORDERED: guaiFENesin 600 MG TABLET PO SCH (11:00)
[2023-03-23 12:44] LABS: MAGNESIUM 1.8 mg/dL (1.7-2.3); POTASSIUM 3.9 mmol/L (3.5-4.5)
[2023-03-23] MEDS ORDERED: AMIODARONE 150 MG/100 ML 100 ML IV ONE (12:45)
[2023-03-23] MEDS ORDERED: AMIODARONE 360 MG/200 ML 200 ML IV ONE (12:45)
[2023-03-23] MEDS ORDERED: AMIODARONE 360 MG/200 ML 200 ML IV SCH (13:00)
--- NOTE | 2023-03-23 13:06 | PROVIDER PROGRESS NOTE ---
Hospitalist Cross-cover Note - Cross-Cover Note Cross-Cover Note: At approximately 12 noon today, the patient was standing up urinating. On telemetry, the patient went into runs of non-sustained multi-focal V. tach, possibly even Torsades de Pointes, at a rate of 280. (There was a 5-beat run of it, and then a 10 beat- run and finally a much longer run, that lasted possibly 10 seconds). Our telemetry clerk carrier brought the rhythm strips to my attention. I asked the nurse about his symptoms and she said that she was next to him when he was urinating and that he had no symptoms at the time that he described. He was put back into bed. His sitting vital signs were WNL with a blood pressure 163/96, HR 79. Upon review of the vital signs, about 1 hour prior to this event, the patient had his orthostatic vital signs checked, and he was orthostatic: His systolic blood pressure dropped 20 mmHg and his heart rate shauna to 30 points, when going from supine to standing. Impression: V. tach, Torsade de pointes Syncope at home Orthostatic hypotension Plan: Admit the patient from Observation to Inpatient status Transfer him to the ICU I will order bedrest I will cancel PT and OT evaluations Start Amiodarone bolus and drip, 3 stages ordered Obtain a STAT troponin, potassium, magnesium Cont iv saline hydration I will start making arrangements for the patient to be transferred to higher level of care hospital, where they have cardiology and EP I am still awaiting his Echo to be done, to evaluate chamber sizes and function. I spoke to the electronic funds transfer coordinator at [facility], they do have a bed available. I then spoke to the Global Sourcing Manager today at [facility] and reviewed the case. He was accepted for transfer there. Transfer will be via [facility] ground transport, on an iv Amiodarone drip. I reviewed the patient's chart and his demographics are old (indicating that he is , when in fact he is ). The patient gave me the name of his : Lizzie Guerin . I then called his , I received some more of his Hx details, and gave her an update. She confirmed to me that she herself has COVID and is coughing now. CRITICAL CARE TIME SPENT: 60 min (Valuated patient, ordering and evaluating labs, ordering transfer to ICU and new meds, speaking with transfer center, accepting doctor, updating the )
[2023-03-23] MEDS ORDERED: POTASSIUM CHLORIDE 20 MEQ TABLET PO ONE (13:33)
[2023-03-23] MEDS ORDERED: MAGNESIUM OXIDE 400 MG TABLET PO ONE (13:33)
[2023-03-23] MEDS ORDERED: SODIUM CHLORIDE FLUSH 0.9% 10 ML SYRINGE IVP SCH (17:00)
--- NOTE | 2023-03-23 17:46 | Discharge Plan ---
Discharge Plan Problem Reviewed?: Yes Disposition: 02 Transfer Acute Care Hosp Condition: Fair No Smoking: If you smoke, Please STOP! Call for help.
--- NOTE | 2023-03-23 17:46 | DISCHARGE SUMMARY ---
Discharge Summary Admit Date: 03/23/23 Discharge Date: 03/23/23 Discharging Provider: Dr Carina Almanza Primary Care Provider: Dr Ruy Galicia Code Status: Do Not Attempt Resuscitation Condition at Discharge: Fair Discharge Disposition: 02 Transfer Acute Care Hosp Discharge Facility Name: [facility], 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 There is no past cardiac history. Patient has been exposed to his step- grandchildren who have had URIs and who have tested pos for COVID. Yesterday after walking up the stairs from the basement, while sitting at the table he had sudden syncope, and slumped out of his chair down to the ground. The was present and witnessed it. She called 911. Vital signs were stable at the scene with a heart rate of 98 and a blood pressure of 136/85. He received IV saline on route. The called the ED provider and gave details of the event: He slumped and had no trauma when reached the floor, he was out for approximately 1 minute. The thinks he may have caught the COVID infection from the step- grandchildren and that he may also be dehydrated. In the ED the patient tested positive for COVID. He has CKD and has approximately the same abnormal BUN/creatinine as before. He was to be admitted last night by the telemedicine doctor but our [facility] EMR was entirely down so only verbal orders were given and only partially done. I am the daytime hospitalist now admitting the patient. Patient is a poor historian. He reports he had syncope in the past and was found to have a perforated gastric ulcer. Ever since then he gets "lightheaded when he walks up the stairs, this is improved if he tilts his head backward". 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 He was taken to the ER, he states no cause, was found and he was referred to a Salesforce Developer for "arrhythmias". He never went for that appointment because he then moved out of that state where he worked, and has not seen a Salesforce Developer locally. Patient is followed by PCP in [place], [place]. He was recently found to have "enlarged lymph n odes in his chest". There is no tissue diagnosis yet. The next step is to get a follow-up CT chest which is still upcoming. I then called his by phone and got more details. 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 He has word finding difficulty, which the describes and I witnessed. He has recently had a mild cough with no sputum and was behaving very weak yesterday when this syncopal event happened. She was trying to make him drink extra fluids but he was actually refusing liquids. We discussed his CODE STATUS and he wants to be a DNR. - HOSPITAL COURSE Hospital Course: (1) Torsades de Pointes - I47.2 On 03/23/23, at about 12 noon, while standing up urinating, the patient had several runs of non-sustained multi-focal V. tach, T[place] Point[place], at a rate of 280. First a 5-beat run of it, and then a 10 beat-run and then a much longer run, that lasted possibly 10 seconds. His nurse was next to him when he was urinating and said that he had no symptoms or complaints at the time. He was put back into bed and his vital signs were WNL. He was admitted from Observation to Inpatient status. He was transferred to the ICU and started on iv Amiodarone bolus and drip. I then reached out to have him transferred to a hospital with higher level of care and he was accepted for transfer to [facility]. An Echo was ordered but not yet done while he was here. (2) Orthostatic hypotension The patient's first set of orthostatic vital signs showed his systolic BP dropped 20 mmHg, and his HR shauna 30 points, when going from supine to standing. IV saline hydration was continued. (3) Syncope Patient had a brief preceding lightheaded feeling, when climbing stairs, before sitting down. He has had this lightheaded feeling when climbing stairs for 1 to 2 years, which is improved when he tilts his head back, which seems like a description of vertigo or vestibular abnormality. Then he had syncope which was witnessed. He slumped and slipped out of his chair and had syncope. VS were normal when paramedics arrived. (4) Ventricular bigeminy - I 49.8 The admission EKG shows sinus rhythm with ventricular bigeminy. He had troponins that were "flat" (22, 21), ruling out an ACS event. He did have a low magnesium which was replaced. (5) Hypomagnesemia This may have added to his ventricular arrhythmias. His admission Mg was 1.6, and it was replaced, and improved to 2.1. Then a STAT Mg level at the time of his V. tach came back at 1.8. (6) COVID-19 Presumably he caught COVID from his grandchildren who have a URI, presumably causing the dehydration. He did not have oxygen desaturations to warrant Decadron or Remdesivir or a cough to qualify for Paxlovid. A CXR showed atelectasis, but no infiltrates. He was put on isolation precautions while here. (7) CKD (chronic kidney disease) He usually runs a creatinine of 1.2-1.4 At admission his creatinine was 1.4 (8) Poor memory According to the he has had 2 prior strokes. When he presented to the ER now, no head CT had been done, presumably since no head trauma was reported. - ALLERGIES Allergies/Adverse Reactions: Allergies Allergy/AdvReac Type Severity Reaction Status Date / Time No Known Drug Allergies Allergy Verified 03/22/23 22:10 - MEDICATIONS Home Medications: Ambulatory Orders Medication Instructions Recorded Confirmed Aspirin EC [Ecotrin] 81 mg PO DAILY 11/23/22 03/22/23 Levothyroxine [Synthroid] 25 mcg PO QDAC 11/23/22 03/22/23 Pantoprazole Sodium [Protonix] 40 mg PO DAILY 11/23/22 03/22/23 lisinopriL [Lisinopril] 10 mg PO DAILY 11/23/22 03/22/23 LORazepam [Lorazepam] 2 mg PO HS 03/22/23 03/22/23 - PHYSICAL EXAM AT DISCHARGE General Appearance: positive: No acute distress, Alert Eyes Bilateral: positive: Normal inspection, EOMI ENT: positive: ENT inspection nml, No signs of dehydration, Other ([place]) Neck: positive: Nml inspection, No JVD Respiratory: positive: No respiratory distress, Breath sounds nml Cardiovascular: positive: Regular rate & rhythm, No murmur Abdomen: positive: Non-tender, Nml bowel sounds, No distention Skin: positive: Color nml, Warm, Dry Extremities: positive: Non-tender, No pedal edema Neurologic/Psychiatric: positive: Oriented x3, Motor nml, Other (Poor memory. Has word-finding difficulty.) - LABS Result Diagrams: 03/22/23 22:06 03/23/23 12:09 - DIAGNOSTIC IMAGING Diagnostic Imaging Results: Final report reviewed - FOLLOW UP Follow Up: This will be determined after his stay at [facility]. - TIME SPENT Time Spent in Discharge (Minutes): 3,535
[2023-03-23 17:55] VITALS: BP 137/78; O2SAT 98
[2023-03-23 18:22] LABS: MAGNESIUM 1.9 mg/dL (1.7-2.3); POTASSIUM 3.9 mmol/L (3.5-4.5)
[2023-03-23] MEDS ORDERED: HEPARIN 5,000 UNIT/ML VIAL SUBQ SCH (21:00)
[2023-03-23] MEDS ORDERED: LORazepam 1 MG TABLET PO SCH (21:00)
[2023-03-24] MEDS ORDERED: LEVOTHYROXINE 25 MCG TABLET PO SCH (07:00)
[2023-03-24] MEDS ORDERED: PANTOPRAZOLE 40 MG TABLET PO SCH (07:00)
== END 2023-03-23 18:19 | disposition short-term general hospital (02) | DRG 308 ==
LOC: EDUNIT# → ED 21:56 → MS2 03-23 05:47 → OBSVTOIN 03-23 11:50 → ICU 03-23 12:03
PROVIDERS: ADMIT Internal Medicine; ATTEND Internal Medicine
DX: R55 Syncope and collapse (principal); I47.21 Torsades de pointes; U07.1 COVID-19; I95.1 Orthostatic hypotension; R00.8 Other abnormalities of heart beat; I49.3 Ventricular premature depolarization; E83.42 Hypomagnesemia; E86.0 Dehydration; R74.01 Elevation of levels of liver transaminase levels; R77.8 Other specified abnormalities of plasma proteins; E03.9 Hypothyroidism, unspecified; K21.9 Gastro-esophageal reflux disease without esophagitis; I45.2 Bifascicular block; I12.9 Hypertensive chronic kidney disease with stage 1 through stage 4 chronic kidney disease, or unspecified chronic kidney disease; N18.9 Chronic kidney disease, unspecified; I69.311 Memory deficit following cerebral infarction; Z66 Do not resuscitate; Z79.82 Long term (current) use of aspirin; Z79.890 Hormone replacement therapy; Z79.899 Other long term (current) drug therapy; Z85.46 Personal history of malignant neoplasm of prostate; Z96.649 Presence of unspecified artificial hip joint
CPT/HCPCS: 36415; 71045; 80048; 80053; 83735; 84132; 84484; 85025; 87150; 87633; 93005; 96361; 96365; 99285; A9270; J0282

== ENCOUNTER 2023-03-23 18:23 | Outpatient (CLI) | payer MEDICARE, BC | END 2023-03-23 23:59 | disposition short-term general hospital (02) | LOC: EMS 18:23 | PROVIDERS: ATTEND Internal Medicine | DX: I47.20 Ventricular tachycardia, unspecified (principal); R55 Syncope and collapse | CPT/HCPCS: A0425; A0426 ==

== ENCOUNTER 2023-10-31 13:22 | Emergency (ER) | payer MEDICARE, BC ==
[2023-10-31 13:41] VITALS: O2SAT 100
[2023-10-31 14:04] LABS: BASOPHILS # (AUTO) 0.1 10^3/uL (0.0-0.1); BASOPHILS % (AUTO) 1.1 %; EOSINOPHILS # (AUTO) 0.2 10^3/uL (0.0-0.7); EOSINOPHILS % (AUTO) 2.7 %; HCT - HEMATOCRIT 42.5 % (42.0-52.0); HGB - HEMOGLOBIN 13.7 g/dL (14.0-18.0); LYMPHOCYTES % (AUTO) 14.3 %; MEAN CORPUSCULAR HEMOGLOBIN 30.2 pg (27.0-31.0); MEAN CORPUSCULAR HGB CONC 32.2 g/dL (32.0-36.0); MEAN CORPUSCULAR VOLUME 93.6 fL (80.0-94.0); MEAN PLATELET VOLUME 11.1 fL (7.4-11.4); MONOCYTES # (AUTO) 0.7 10^3/uL (0.0-1.0); MONOCYTES % (AUTO) 10.9 %; NEUTROPHILS # (AUTO) 4.7 10^3/uL (1.5-6.6); NEUTROPHILS % (AUTO) 70.5 %; PLT - PLATELET COUNT 162 10^3/uL (130-450); RED BLOOD COUNT 4.54 10^6/uL (4.70-6.10); RED CELL DISTRIBUTION WIDTH 13.9 % (12.0-15.0); WHITE BLOOD COUNT 6.6 x10^3/uL (4.8-10.8)
[2023-10-31 14:15] LABS: ALBUMIN 4.1 g/dL (3.2-5.5); ALBUMIN/GLOBULIN RATIO 1.2 (1.0-2.2); BILIRUBIN,TOTAL 0.6 mg/dL (0.2-1.0); CREATININE 1.4 mg/dL (0.6-1.3); MAGNESIUM 1.8 mg/dL (1.7-2.3); POTASSIUM 4.1 mmol/L (3.5-4.5); TOTAL PROTEIN 7.4 g/dL (6.4-8.9)
--- NOTE | 2023-10-31 15:00 | CT Report ---
PROCEDURE: Cervical Spine WO INDICATIONS: GLF neck pain TECHNIQUE: Noncontrast 3 mm thick sections acquired from the skull base to the T4 level. Sagittal and coronal r eformats were then constructed. For radiation dose reduction, the following was used: automated exp osure control, adjustment of mA and/or kV according to patient size. COMPARISON: None. FINDINGS: Image quality: Excellent. Bones: No fractures or dislocations. 3 mm anterolisthesis of C4 on C5 is seen. Loss of disc height, degenerative endplate changes and bilateral facet hypertrophic changes are noted throughout cervical spine. Dorsal disc osteophyte complex formation at C3-4, C5-6 and C6-7 levels are seen causing mild-t o-moderate central canal stenosis and mild bilateral neural foraminal narrowing. Visualized superior ribs are intact. Soft tissues: Prevertebral soft tissues are normal in thickness. No paravertebral hematomas. No ap ical pneumothoraces. IMPRESSION: 1. No acute cervical spine fracture or dislocation. 2. Degenerative disc disease throughout cervical spine as above. Reviewed by: Azael Melendrez MD on 10/31/2023 2:59 PM PDT Approved by: Azael Melendrez MD on 10/31/2023 2:59 PM PDT Station ID: [id number]
--- NOTE | 2023-10-31 15:02 | CT Report ---
PROCEDURE: Head WO INDICATIONS: GLF head injury TECHNIQUE: Noncontrast 4.5 mm thick angled axial sections acquired from the foramen magnum to the vertex. For r adiation dose reduction, the following was used: automated exposure control, adjustment of mA and/or kV according to patient size. COMPARISON: None FINDINGS: Image quality: Excellent. CSF spaces: Basal cisterns are patent. No extra-axial fluid collections. The ventricles are symmet milad in size and shape. Brain: No intracranial bleeds or masses. There is cerebral volume loss for age, with resultant vent ricular and sulcal prominence. There are periventricular and deep white matter chronic small vessel ischemic changes. There is intracranial internal carotid artery atherosclerosis. Skull and face: Calvarium and visualized facial bones appear intact, without suspicious lesions. Sinuses: Visualized sinuses and mastoids are clear. IMPRESSION: 1. No acute intracranial abnormalities. 2. Age-related volume loss and mild white matter chronic small vessel ischemic changes. Reviewed by: Azael Melendrez MD on 10/31/2023 3:01 PM PDT Approved by: Azael Melendrez MD on 10/31/2023 3:01 PM PDT Station ID: [id number]
--- NOTE | 2023-10-31 15:10 | ED Physician Documentation ---
History of Present Illness - Stated complaint Stated Complaint: HEAD INJ - Chief complaint Chief Complaint: Trauma Hd/Nk - Additonal information Additional information: 83-year-old male not anticoagulated presents emergency department for head injury after falling down stairs. Is unclear if he fell up or down the stairs but said that she found him down about 3-4 stairs patient says that he fell upstairs and must of rolled down the stairs According to the . He did have some cervical tenderness and also reports that he has some bilateral upper shoulder pain. He did not lose consciousness no seizure-like activity no nausea vomiting Patient is not on any blood thinners. He is superficial abrasions to his forehead and the bridge of his nose. PD PAST MEDICAL HISTORY - Past Medical History Cardiovascular: Hypertension, Other (One episode of syncope 9 mos ago, while walking, was to see Cardiology but pt moved away ) Respiratory: Other (Patiently told that he has enlarged lymph nodes in the chest and PCP is worried it is lymphoma but no tissue biopsy obtained yet, a F/U CT chest is pending.) Neuro: CVA (2 CVAs, per , that have caused poor memory) Endocrine/Autoimmune: HyPOthyroidism GI: GERD, Other (Ruptured, bleeding gastric ulcer) : Other (Prostate CA) HEENT: Chronic hearing loss Psych: None Musculoskeletal: None Derm: None - Past Surgical History Past Surgical History: Yes General: Other (Repaired perforated gastric ulcer) Ortho: Hip replacement /CLINICAL SERVICES SPECIALIST: Other (TURP and spincter repair) - Present Medications Home Medications: Ambulatory Orders Medication Instructions Recorded Confirmed Aspirin EC [Ecotrin] 81 mg PO DAILY 11/23/22 03/22/23 Levothyroxine [Synthroid] 25 mcg PO QDAC 11/23/22 03/22/23 Pantoprazole Sodium [Protonix] 40 mg PO DAILY 11/23/22 03/22/23 lisinopriL [Lisinopril] 10 mg PO DAILY 11/23/22 03/22/23 LORazepam [Lorazepam] 2 mg PO HS 03/22/23 03/22/23 Metoprolol Tartrate [Lopressor] 25 mg PO DAILY 10/31/23 - Allergies Allergies/Adverse Reactions: Allergies Allergy/AdvReac Type Severity Reaction Status Date / Time No Known Drug Allergies Allergy Verified 10/31/23 14:35 - Social History Does the pt smoke?: No Smoking Status: Never smoker Does the pt drink ETOH?: No Does the pt have substance abuse?: No - Immunizations Immunizations are current?: Yes - POLST Patient has POLST: No PD ED PE NORMAL - Vitals Vital signs reviewed: Yes - General General: Alert and oriented X 3, No acute distress, Well developed/nourished - HEENT HEENT: PERRL, EOMI, Moist mucous membranes, Other (Superficial abrasion to forehead and bridge of nose) - Neck Neck: Other (Cervical tenderness with palpation) - Cardiac Cardiac: RRR - Respiratory Respiratory: No respiratory distress, Clear bilaterally - Abdomen Abdomen: Normal bowel sounds, Soft, Non tender - Back Back: No CVA TTP, No spinal TTP - Derm Derm: Warm and dry - Neuro Neuro: Alert and oriented X 3, frame wirer 2-12 intact, No motor deficit, No sensory deficit, Normal speech Eye Opening: Spontaneous Motor: Obeys Commands Verbal: Oriented GCS Score: 15 - Psych Psych: Normal mood Results - Vitals Vitals: Vital Signs - 24 hr 10/31/23 10/31/23 13:23 15:15 Temperature 36.4 C L Heart Rate 82 73 Respiratory 17 18 Rate Blood Pressure 159/84 H 168/82 H O2 Saturation 100 100 Oxygen O2 Source Room air - Labs Labs: Laboratory Tests 10/31/23 10/31/23 13:57 13:57 WBC 6.6 RBC 4.54 L Hgb 13.7 L Hct 42.5 MCV 93.6 MCH 30.2 MCHC 32.2 RDW 13.9 Plt Count 162 MPV 11.1 Neut # (Auto) 4.7 Lymph # (Auto) 1.0 L [place] # (Auto) 0.7 Eos # (Auto) 0.2 Baso # (Auto) 0.1 Absolute Nucleated RBC 0.00 Nucleated RBC % 0.0 Sodium 137 Potassium 4.1 Chloride 104 Carbon Dioxide 27 Anion Gap 6.0 BUN 21 H Creatinine 1.4 H Estimated GFR (MDRD) 48 L Glucose 111 H Calcium 10.0 Magnesium 1.8 Total Bilirubin 0.6 AST 51 H ALT 14 Alkaline Phosphatase 59 Total Protein 7.4 Albumin 4.1 Globulin 3.3 Albumin/Globulin Ratio 1.2 Lipase 16 - Rads (name of study) Cervical spine without contrast Relevant Findings:: Final report received, EMP independent interpretation of test, Other (No acute cervical spine fracture or dislocation 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 He has superficial abrasion to his forehead as well as the bridge of his nose he has no facial tenderness and nose appears to be midline. Labs are complete he has mild anemia, hemoglobin 13.7, CMP also complete BUN elevated at 21, creatinine 1.4, GFR 48, AST slightly elevated at 51 no significant other abnormalities. Previous labs reviewed and it appears that BUN is actually better than other ER visits this appears to be patient's baseline as well as patient's creatinine. CT cervical spine without contrast was complete for further evaluation of possible subluxation or fractures there were no acute abnormalities or fractures visualized. He appears to have chronic degenerative changes throughout cervical spine. CT head without contrast was also complete for concerns of possible intracranial hemorrhage and this was ruled out as well. Patient was offered Tylenol and ibuprofen here in the emergency department but he kindly declined and said that he had this at home and would like to just return home to rest. Believe he is safe for discharge she is sleeping with his who is quite supportive and attentive to his needs. Patient will follow-up primary care provider and given ER return precautions. Departure - Departure Disposition: 01 Home, Self Care Clinical Impression: Fall down stairs Qualifiers: Encounter type: initial encounter Qualified Code(s): W10.8XXA - Fall (on) (from) other stairs and steps, initial encounter Closed head injury Qualifiers: Encounter type: initial encounter Qualified Code(s): S09.90XA - Unspecified injury of head, initial encounter Instructions: ED Head Injury Closed Comments: Thank you for trusting us with your care, we have evaluated you for your head injury. We have completed a CTA of your neck as well as your head and look for possible fractures of your neck or any sort of intracranial hemorrhage or bleeding of your brain and we are not seeing any abnormalities at this time. At this point we believe that it is safe for discharge. Keep in mind that although rare there are times after patients have had a normal head CT that there is still a slow brain bleed that we are not picking up on the initial CT scan. If you are starting to notice patient get fatigued, confused, weakness on one side of the body, or any other concerning neurological symptoms please present back to the emergency department for further evaluation and repeat examination. Please follow-up with primary care provider as needed. Forms: PCP List Discharge Date/Time: 10/31/23 15:31
[2023-10-31 15:18] VITALS: BP 168/82
[2023-10-31] MEDS: ACETAMINOPHEN 325 MG TABLET PO STA (15:21)
== END 2023-10-31 15:31 | disposition home or self-care (01) ==
LOC: ED 13:22
DX: S09.90XA Unspecified injury of head, initial encounter (principal); S00.81XA Abrasion of other part of head, initial encounter; S00.31XA Abrasion of nose, initial encounter; W10.9XXA Fall (on) (from) unspecified stairs and steps, initial encounter; I10 Essential (primary) hypertension; E03.9 Hypothyroidism, unspecified; Z79.82 Long term (current) use of aspirin; Z79.899 Other long term (current) drug therapy
CPT/HCPCS: 36415; 80053; 83690; 83735; 85025; 99283; 99284

== ENCOUNTER 2024-12-11 04:05 | Observation (INO) ==
[2024-12-11] MEDS ORDERED: ONDANSETRON 4 MG/2 ML VIAL ONE (04:28)
--- OUTSIDE RECORDS SUMMARY | 2024-12-11 04:43 | EXTERNAL MEDICAL SUMMARY RPT | Continuity of Care Document ---
Author Organization [facility] Address [address] [place] [address] Phone Problems date description facility 2024-10-14 10:06 Unspecified injury of head, ini tial encounter [facility] 2024-10-15 11:17 Encounter for examin ation and observation following other accident [facility] Results/Labs test date facility value unit notes Result panel 1 ETOH - ETHANOL 2024-10-09 15:45 [facility] < 10.0 mg/dl Blood Alcohol Levels Level Sporadic Drinkers Chronic drinkers 100 mg/dL Legally intoxicated* Minimal signs 200-250 mg/dL Alertness lost, Effort needed to becoming lethargic maintain emotional and motor control 300-350 mg/dL Stupor to coma Drowsy and slow >500 mg/dL Possible Coma *The legal definition of intoxication varies. This assy is for medical decision making only. As of February 2023 testing method has changed, this may include reference ranges. NUCLEATED RED BLOOD CELLS AUTO 2024-10-09 15:45 [facility] 0.0 /100wbc (missing) NRBC ABSOLUTE COUNT (AUTO) 2024-10-09 15:45 [facility] 0.00 x10 3/ul (missing) BASOPHILS # (AUTO) 2024-10-09 15:45 [facility] 0.1 10 3/ul (missing) EOSINOPHILS # (AUTO) 2024-10-09 15:45 [facility] 0.3 10 3/ul (missing) BILIRUBIN,TOTAL 2024-10-09 15:45 [facility] 0.5 mg/dl As of February 2023 test ing method has changed, this may include reference ranges. MONOCYTES # (AUTO) 2024-10-09 15:45 [facility] 0.6 10 3/ul (missing) LYMPHOCYTES # (AUTO) 2024-10-09 15:45 [facility] 1.0 10 3/ul (missing) ALBUMIN/GLOBULIN RATIO 2024-10-09 15:45 [facility] 1.1 (missing) (missing) INR 2024-10-09 15:45 [facility] 1.2 (missing) Oral Anticoagulant Indication INR range Venous Thrombosis, P.E. 2.0 - 3.0 Mechanical Valve 2.5 - 3.5 CREATININE 2024-10-09 15:45 [facility] 1.4 mg/dl As of February 2023 test ing method has changed, this may include reference ranges. MAGNESIUM 2024-10-09 15:45 [facility] 1.7 mg/dl As of February 2023 test ing method has changed, this may include reference ranges. CHLORIDE 2024-10-09 15:45 [facility] 109 mmol/l As of February 2023 test ing method has changed, this may include reference ranges. MEAN PLATELET VOLUME 2024-10-09 15:45 [facility] 11.1 fl (missing) PT - PROTHROMBIN TIME 2024-10-09 15:45 [facility] 12.7 secs (missing) HGB - HEMOGLOBIN 2024-10-09 15:45 [facility] 13.1 g/dl (missing) GLUCOSE 2024-10-09 15:45 [facility] 135 mg/dl As of February 2023 test ing method has changed, this may include reference ranges. SODIUM 2024-10-09 15:45 [facility] 139 mmol/l As of February 2023 test ing method has changed, this may include reference ranges. RED CELL DISTRIBUTION WIDTH 2024-10-09 15:45 [facility] 14.2 % (missing) TROPONIN I HIGH SENSITIVITY 2024-10-09 15:45 [facility] 14.8 ng/l A HIGH SENSITIVITY TROPONIN result of >= 14.9 ng/L for females is considered POSITIVE. A HIGH SENSITIVITY TROPONIN result of >= 19.8 ng/L for males is considered POSITIVE. A HIGH SENSITIVITY TROPONIN result of >= 17.9 ng/L for unspecified is considered POSITIVE. PLT - PLATELET COUNT 2024-10-09 15:45 [facility] 155 10 3/ul (missing) ALT ALANINE AMINOTRANSFERASE 2024-10-09 15:45 [facility] 18 iu/l As of February 2023 test ing method has changed, this may include reference ranges. CARBON DIOXIDE - CO2 2024-10-09 15:45 [facility] 23 mmol/l As of February 2023 test ing method has changed, this may include reference ranges. GLOBULIN 2024-10-09 15:45 [facility] 3.4 g/dl (missing) ALBUMIN 2024-10-09 15:45 [facility] 3.8 g/dl As of February 2023 test ing method has changed, this may include reference ranges. BUN - BLOOD UREA NITROGEN 2024-10-09 15:45 [facility] 31 mg/dl As of February 2023 test ing method has changed, this may include reference ranges. MEAN CORPUSCULAR HEMOGLOBIN 2024-10-09 15:45 [facility] 31.5 pg (missing) MEAN CORPUSCULAR HGB CONC 2024-10-09 15:45 [facility] 33.5 g/dl (missing) HCT - HEMATOCRIT 2024-10-09 15:45 [facility] 39.1 % (missing) THYROID STIMULATING HORMONE 2024-10-09 15:45 [facility] 4.07 uiu/ml (missing) RED BLOOD COUNT 2024-10-09 15:45 [facility] 4.16 10 6/ul (missing) NEUTROPHILS # (AUTO) 2024-10-09 15:45 [facility] 4.2 10 3/ul (missing) POTASSIUM 2024-10-09 15:45 [facility] 4.2 mmol/l As of February 2023 test ing method has changed, this may include reference ranges. GFR - MDRD 2024-10-09 15:45 [facility] 48 (missing) Social History date description facility
[2024-12-11 05:13] LABS: BASOPHILS # (AUTO) 0.1 10^3/uL (0.0-0.1); BASOPHILS % (AUTO) 0.6 %; EOSINOPHILS # (AUTO) 0.2 10^3/uL (0.0-0.7); EOSINOPHILS % (AUTO) 2.5 %; HCT - HEMATOCRIT 40.8 % (42.0-52.0); HGB - HEMOGLOBIN 13.4 g/dL (14.0-18.0); LYMPHOCYTES # (AUTO) 1.3 10^3/uL (1.5-3.5); MEAN CORPUSCULAR HEMOGLOBIN 31.6 pg (27.0-31.0); MEAN CORPUSCULAR HGB CONC 32.8 g/dL (32.0-36.0); MEAN CORPUSCULAR VOLUME 96.2 fL (80.0-94.0); MEAN PLATELET VOLUME 11.1 fL (7.4-11.4); MONOCYTES # (AUTO) 0.9 10^3/uL (0.0-1.0); MONOCYTES % (AUTO) 10.1 %; NEUTROPHILS % (AUTO) 71.4 %; PLT - PLATELET COUNT 209 10^3/uL (130-450); RED BLOOD COUNT 4.24 10^6/uL (4.70-6.10); RED CELL DISTRIBUTION WIDTH 15.5 % (12.0-15.0); WHITE BLOOD COUNT 8.5 x10^3/uL (4.8-10.8)
--- NOTE | 2024-12-11 05:17 | ED Physician Documentation ---
PD HPI ALTERED MENTAL STATUS Stated complaint Stated Complaint: AMS Chief complaint Chief Complaint: Neuro History obtained from History obtained from: Patient, Family () and EMS History of Present Illness Timing - onset: How many days ago (Per EMS, related to them the patient has been generally waker the past 2 days, with unable to alk regularly. He typically will take short walks to beach outside their house and to bathroom, etc. but not the past 2 days, and was incontinent of urine/stool this night, which is also unusual. ) Timing - duration: Days (2) Timing - details: Gradual onset and Still present Quality / character: Other (generally weaker and slower to respond to questions. No focal deficits. Denies any pains here in ED.) Associated symptoms: General weakness; No Fever, Dyspnea, Cough, NVD or Focal weakness Contributing factors: Known dementia; No Anticoagulated Basline status: Ambulatory, Disoriented and Home Treatment BAKER HEAD: Accucheck Similar symptoms before: Has not had sx before Meds/Allgy Home Medications Ambulatory Orders Medication Instructions Recorded Confirmed aspirin 81 mg tablet,delayed 81 mg PO DAILY 11/23/22 0 12/11/24 release levothyroxine 25 mcg tablet 25 mcg PO QDAC 11/23/22 lisinopril 10 mg tablet 10 mg PO DAILY 11/23/2202/28 lorazepam 2 mg tablet 2 mg PO BID PRN anxiety 03/0712/11/24 metoprolol tartrate 25 mg tablet 12.5 mg PO HS 4 12/11/24 atorvastatin 20 mg tablet 20 mg PO DAILY 10/09/2402/28 carbidopa 25 mg-levodopa 100 mg 1 tab PO TID 10/09/24 12/11/24 tablet acetaminophen 325 mg tablet 325 mg PO Q4H PRN pain 02/2812/11/24 (Tylenol) ascorbic acid (vitamin C) 500 mg 500 mg PO DAILY 12/1112/11/24 tablet (C-500) baclofen 10 mg tablet 10 mg PO TID 12/11/24 metoprolol tartrate 25 mg tablet 25 mg PO DAILY 12/11/24 multivitamin (Multiple Vitamins 1 tab PO DAILY 5 05/07/25 tablet) pantoprazole 40 mg tablet,delayed 40 mg PO BID 5 12/11/24 release trazodone 50 mg tablet 50 mg PO HS 12/11/24 5 Allergies Allergies Allergy/AdvReac Type Severity Reaction Status Date / Time No Known Drug Allergies Allergy Verified 12/11/24 05:21 PFSH Active Problems All Active Problems (Updated 12/11/24 @ 13:33 by Ade Navarro MD) Atrial fibrillation with RVR (Acute) Acute hypoxic respiratory failure (Acute) Dehydration (Acute) Pneumonia (Acute) Parkinson's disease (Acute) Altered mental state (Acute) Acute weakness (Acute) Medical History Medical History Dementia Parkinson disease History of gastroesophageal reflux (GERD) History of hypercholesterolemia History of hypertension History of hypothyroidism Social History Social History Smoking Status: Unknown if ever smoked Do you dip or chew tobacco?: No Do you vape?: No Living arrangement: At home Living Condition: With spouse/s.o. Relationship: Significant other Level: Dependent Do you feel safe in your home environment?: Yes Suffered physical, verbal, emotional, or financial abuse?: No History of Abuse: No Substance Use: other Substance Use Details: no tobacco use POLST Patient has POLST: No Exam Exam Vital Signs: Vital Signs x48h Temp Pulse Resp BP Pulse Ox 12/11/24 05:46 71 18 134/80 H 99 12/11/24 04:05 36.8 C 77 20 140/76 H 93 Constitutional normal general appearance, no apparent distress and average body habitus HENMT normocephalic and head/scalp atraumatic Neck/C-Spine supple and no meningeal signs Chest palpation of chest normal Respiratory breath sounds equal bilaterally, normal respiratory effort, no wheezes and no rales Cardiovascular normal heart rate noted, rhythm abnormal (irregular), no murmur and no edema Gastrointestinal abdomen soft to palpation and nontender to palpation Neurology no movement abnormality noted and no focal motor deficit noted Psychiatry orientation abnormal (disoriented to time), thought process abnormality noted other (sluggish), affect abnormality noted (flat), psychomotor abnormality noted (slow) and memory abnormal (short term memory loss) Skin skin color normal Results Vitals Vitals: Vital Signs - 24 hr 12/11/24 04:05 12/11/24 05:46 12/11/24 07:39 Temperature 36.8 C Temperature Source Tympanic Pulse Rate 77 71 81 Respiratory Rate 20 18 16 Blood Pressure 140/76 H 134/80 H 105/67 O2 Saturation 93 99 93 O2 Source Room air Room air Room air Pain Intensity 0 0 12/11/24 08:36 12/11/24 08:58 Temperature 36.6 C Temperature Source Temporal Artery Scan Pulse Rate 80 83 Respiratory Rate 22 24 Blood Pressure 149/81 H 171/95 H O2 Saturation 94 95 O2 Source Room air Room air Pain Intensity 0 0 Oxygen O2 Source Room air Labs Labs: Laboratory Tests 12/11/24 12/11/24 12/11/24 04:47 06:25 06:45 WBC 8.5 RBC 4.24 L Hgb 13.4 L Hct 40.8 L MCV 96.2 H MCH 31.6 H MCHC 32.8 RDW 15.5 H Plt Count 209 MPV 11.1 Neut # (Auto) 6.0 Lymph # (Auto) 1.3 L [place] # (Auto) 0.9 Eos # (Auto) 0.2 Baso # (Auto) 0.1 Absolute Nucleated RBC 0.00 Nucleated RBC % 0.0 Sodium 138 Potassium 4.2 Chloride 105 Carbon Dioxide 26 Anion Gap 7.0 BUN 30 H Creatinine 1.1 Estimated GFR (MDRD) 64 L Glucose 106 H Calcium 9.8 Magnesium 2.0 Total Bilirubin 0.8 AST 112 H ALT 19 Alkaline Phosphatase 88 Troponin I High Sens 43.3 H* 41.0 H* Total Protein 7.1 Albumin 3.9 Globulin 3.2 Albumin/Globulin Ratio 1.2 Lipase 11 Procalcitonin Immunoas Urine Color Cancelled YELLOW Urine Clarity Cancelled CLEAR Urine pH Cancelled 6.0 Ur Specific [place] Cancelled 1.015 Urine Protein Cancelled NEGATIVE Urine Glucose (UA) Cancelled NEGATIVE Urine Ketones Cancelled NEGATIVE Urine Occult Blood Cancelled NEGATIVE Urine Nitrite Cancelled NEGATIVE Urine Bilirubin Cancelled NEGATIVE Urine Urobilinogen Cancelled 0.2 (NORMAL) Ur Leukocyte Esterase Cancelled NEGATIVE Ur Microscopic Review Cancelled NOT INDICATED Urine Culture Comments Cancelled NOT INDICATED Nasal Adenovirus (PCR) NOT DETECTED Nasal B. parapertussis DNA (PCR) NOT DETECTED Nasal Coronavir 229E PCR NOT DETECTED Nasal Coronavir HKU1 PCR NOT DETECTED Nasal Coronavir NL63 PCR NOT DETECTED Nasal Coronavir OC43 PCR NOT DETECTED Nasal Enterovir/Rhinovir PCR NOT DETECTED Nasal Influenza B PCR NOT DETECTED Nasal Influenza A PCR NOT DETECTED Nasal Parainfluen 1 PCR NOT DETECTED Nasal Parainfluen 2 PCR NOT DETECTED Nasal Parainfluen 3 PCR NOT DETECTED Nasal Parainfluen 4 PCR NOT DETECTED Nasal RSV (PCR) NOT DETECTED Nasal B.pertussis DNA PCR NOT DETECTED Nasal C.pneumoniae (PCR) NOT DETECTED [place] Human Metapneumo PCR NOT DETECTED Nasal M.pneumoniae (PCR) NOT DETECTED Nasal SARS-CoV-2 (PCR) NOT DETECTED Ethyl Alcohol < 10.0 12/11/24 09:09 WBC RBC Hgb Hct MCV MCH MCHC RDW Plt Count MPV Neut # (Auto) Lymph # (Auto) [place] # (Auto) Eos # (Auto) Baso # (Auto) Absolute Nucleated RBC Nucleated RBC % Sodium Potassium Chloride Carbon Dioxide Anion Gap BUN Creatinine Estimated GFR (MDRD) Glucose Calcium Magnesium Total Bilirubin AST ALT Alkaline Phosphatase Troponin I High Sens Total Protein Albumin Globulin Albumin/Globulin Ratio Lipase Procalcitonin Immunoas < 0.05 Urine Color Urine Clarity Urine pH Ur Specific [place] Urine Protein Urine Glucose (UA) Urine Ketones Urine Occult Blood Urine Nitrite Urine Bilirubin Urine Urobilinogen Ur Leukocyte Esterase Ur Microscopic Review Urine Culture Comments Nasal Adenovirus (PCR) Nasal B. parapertussis DNA (PCR) Nasal Coronavir 229E PCR Nasal Coronavir HKU1 PCR Nasal Coronavir NL63 PCR Nasal Coronavir OC43 PCR Nasal Enterovir/Rhinovir PCR Nasal Influenza B PCR Nasal Influenza A PCR Nasal Parainfluen 1 PCR Nasal Parainfluen 2 PCR Nasal Parainfluen 3 PCR Nasal Parainfluen 4 PCR Nasal RSV (PCR) Nasal B.pertussis DNA PCR Nasal C.pneumoniae (PCR) [place] Human Metapneumo PCR Nasal M.pneumoniae (PCR) Nasal SARS-CoV-2 (PCR) Ethyl Alcohol PD Medical Decision Making ED course Complexity details: reviewed results, considered differential and d/w family () ED course: The patient does have history of Parkinson's as well as dementia but the relates that he has had a notable change in strength and general weakness just in the last 1 to 2 days. He typically is able to get to the bathroom and back though wears a depends at night but is typically not incontinent. He usually is able to get up and around and take short walks but has been unable to do that for the last 2 days. No focal weakness noted. He was not having any obvious URI type symptoms nor any fevers. No vomiting nor diarrhea. He was incontinent of urine and stool overnight tonight with some loose stool but no noted melena. Unclear whether he was too weak to get to the bathroom or did not have good control. This does not sound like a gradual decline per se. It is notable change just in the last day or 2. We were looking for obvious causes such as acute infections, electrolyte abnormalities, heart failure, pneumonia, stroke etc. The patient does have history of A-fib but is rate controlled and he has a watchman in place. He has had prior strokes related to the A-fib according to the . Initial head CT did not show any acute abnormality. EKG showing A-fib with rate control. Initial troponin was slightly elevated at 43 with a repeat of 41 suggesting not an acute event. Basic blood count and chemistry panels are good. Urinalysis was done and did not show any signs of infection. Respiratory panel is pending. At this point not clear the cause of his change in symptoms. No obvious abnormalities noted as yet. Consideration could be MRI of the brain to look for new stroke. At this point still a work in progress at change of shift. Discharge Plan Discharge Patient Disposition: 66 [facility] DC/Xfer Condition: Fair Clinical Impression: Acute weakness, Altered mental state, Dehydration Parkinson's disease Qualifiers: Dyskinesia presence: with dyskinesia Fluctuating manifestations: with fluctuating manifestations Qualified Code(s): G20.B2 - Parkinson's disease with dyskinesia, with fluctuations Pneumonia Qualifiers: Pneumonia type: due to unspecified organism Laterality: bilateral Lung location: unspecified part of lung Qualified Code(s): J18.9 - Pneumonia, unspecified organism Interventions: ED Admission Assessment Last Done: 12/11/24 10:03
[2024-12-11 05:52] LABS: ALBUMIN 3.9 g/dL (3.2-5.5); ALBUMIN/GLOBULIN RATIO 1.2 (1.0-2.2); ALKALINE PHOSPHATASE 88 IU/L (42-121); ALT ALANINE AMINOTRANSFERASE 19 IU/L (10-60); AST ASPARTATE AMINOTRANSFERASE 112 IU/L (10-42); BILIRUBIN,TOTAL 0.8 mg/dL (0.2-1.0); BUN - BLOOD UREA NITROGEN 30 mg/dL (6-20); CALCIUM 9.8 mg/dL (8.5-10.3); CARBON DIOXIDE - CO2 26 mmol/L (21-32); CHLORIDE 105 mmol/L (101-111); CREATININE 1.1 mg/dL (0.6-1.3); ETOH - ETHANOL < 10.0 mg/dL; GFR - MDRD 64 (>89); GLUCOSE 106 mg/dL (74-104); LIPASE 11 U/L (11-82); POTASSIUM 4.2 mmol/L (3.5-4.5); SODIUM 138 mmol/L (135-145); TOTAL PROTEIN 7.1 g/dL (6.4-8.9)
[2024-12-11 06:32] LABS: B. PARAPERTUSSIS- RESP PCR PAN NOT DETECTED; B. PERTUSSIS- RESP PCR PANEL NOT DETECTED; C. PNEUMONIAE- RESP PCR PANEL NOT DETECTED; CORONAVIRUS 229E-RESP PCR NOT DETECTED; CORONAVIRUS HKU1-RESP PCR NOT DETECTED; CORONAVIRUS NL63-RESP PCR NOT DETECTED; CORONAVIRUS OC43-RESP PCR NOT DETECTED; HUMAN METAPNEUMOVIRUS NOT DETECTED; INFLUENZA A- RESP PCR PANEL NOT DETECTED; INFLUENZA B - RESP PCR PANEL NOT DETECTED; M. PNEUMONIAE- RESP PCR PANEL NOT DETECTED; PARAINFLUENZA VIRUS 1 NOT DETECTED; PARAINFLUENZA VIRUS 2 NOT DETECTED; PARAINFLUENZA VIRUS 4 NOT DETECTED; RHINOVIRUS/ENTEROVIRUS NOT DETECTED; RSV- RESP PCR PANEL NOT DETECTED; SARS-CoV-2 -RESP PCR PANEL NOT DETECTED
[2024-12-11 06:54] LABS: BILIRUBIN,URINE NEGATIVE (NEGATIVE); GLUCOSE, URINE (UA) NEGATIVE (NEGATIVE); KETONES,URINE (UA) NEGATIVE (NEGATIVE); LEUKOCYTE ESTERASE, URINE NEGATIVE (NEGATIVE); NITRITE,URINE NEGATIVE (NEGATIVE); OCCULT BLOOD,URINE NEGATIVE (NEGATIVE); PROTEIN,URINE NEGATIVE (NEGATIVE); UROBILINOGEN,URINE 0.2 (NORMAL) E.U./dL (NORMAL)
[2024-12-11 06:57] LABS: CLARITY,URINE CLEAR (CLEAR)
--- NOTE | 2024-12-11 08:25 | ED Physician Documentation ---
ED Addendum Addendum Addendum: Care of Mr. Capps 84-year-old male with Parkinson's, dementia, hypertension and thyroid disease as well as atrial fibrillation with a watchman in place is turned over to me at shift change with formal reads for imaging pending. Images have been read and the CT is read as no acute intracranial abnormality. The chest x-ray read shows multifocal bilateral pulmonary infiltrates. They recommend a follow-up chest radiograph after appropriate treatment to document resolution. Mr. Capps has had a cough for the past week and he was brought to the hospital by ambulance with increased confusion and he was incontinent of bladder and stool. I encountered Mr. Capps finding a 84-year-old gentleman with his eyes closed able to tell me that he was in the emergency department and he does have parched lips. I evaluated him at the bedside with interrogation of the inferior vena cava finding a vessel of 1.09 cm consistent with a volume deficit of greater than 1 L. He is administered intravenous saline and intravenous Rocephin and azithromycin. He has had elevation in his troponin to a mild degree and this has decreased during his stay in the ED. I examined Mr. Capps at the bedside prior to administration of carbidopa levodopa and at that point he had a GCS of 13 with his eyes closed preferred and open to voice and some mild confusion. His vital signs appeared stable with the patient laying supine. When I sat him up to examine his lungs he desaturated into the low 80s his heart rate went up into the 130 range and his respiratory rate increased. I was not expecting this much of a instability to his vital signs and immediately considered admission of this patient to the hospital with bilateral pneumonia, increased confusion, incontinence and unstable vital signs. Placed a call to hosptitalist at [phone]. Discharge Plan Discharge Patient Disposition: 66 [facility] DC/Xfer Condition: Fair Clinical Impression: Acute weakness, Altered mental state, Dehydration Parkinson's disease Qualifiers: Dyskinesia presence: with dyskinesia Fluctuating manifestations: with fluctuating manifestations Qualified Code(s): G20.B2 - Parkinson's disease with dyskinesia, with fluctuations Pneumonia Qualifiers: Pneumonia type: due to unspecified organism Laterality: bilateral Lung location: unspecified part of lung Qualified Code(s): J18.9 - Pneumonia, unspeci fied organism Interventions: ED Admission Assessment Last Done: 12/11/24 10:03
--- NOTE | 2024-12-11 08:30 | CT Report ---
PROCEDURE: CT Head WO INDICATIONS: CONFUSED TECHNIQUE: Noncontrast 4.5 mm thick angled axial sections acquired from the foramen magnum to the vertex. For radiation dose reduction, the following was used: automated exposure control, adjustment of mA and/or kV according to patient size. COMPARISON: 10/09/2024. FINDINGS: Image quality: Excellent. CSF spaces: Basal cisterns are patent. No extra-axial fluid collections. Ventricles are normal in size and shape. Brain: No midline shift. No intracranial mass effect or hemorrhage. Duque- white matter interface is normal. Intracranial carotid calcifications. Age-related volume loss and small vessel ischemic change. Skull and face: Calvarium and visualized facial bones are intact, without suspicious lesions. Sinuses: Visualized sinuses and mastoids are clear. IMPRESSION: Stable findings. No acute intracranial pathology. Findings are concordant with preliminary interpretation provided by [facility]. Reviewed by: Timo Goldsmith MD on 12/11/2024 8:29 AM PDT Approved by: Timo Goldsmith MD on 12/11/2024 8:29 AM PDT Station ID: [id number]
[2024-12-11] MEDS: SODIUM CHLORIDE 0.9% 1,000 ML IV STA (08:36)
--- NOTE | 2024-12-11 08:48 | XRAY Report ---
PROCEDURE: XR Chest 1V INDICATIONS: DYSPNEA TECHNIQUE: One view of the chest was acquired. COMPARISON: 10/09/2024 FINDINGS AND IMPRESSION: Mild diffuse interstitial prominence, possibly edema similar to prior. No pleural effusions. Low lung volumes. Elevation of the right hemidiaphragm similar to prior. Heart size is at the upper normal. Degenerative osseous changes. No significant changes from the preliminary report. Reviewed by: Bradley Valencia MD on 12/11/2024 8:47 AM PDT Approved by: Bradley Valencia MD on 12/11/2024 8:47 AM PDT Station ID: [id number]
[2024-12-11] MEDS: CARBIDOPA/LEVODOPA 25 MG/100 MG TABLET PO STA (08:59)
[2024-12-11] MEDS: METOPROLOL TARTRATE 25 MG TABLET PO STA (08:59)
[2024-12-11] MEDS: LEVOTHYROXINE 25 MCG TABLET PO STA (08:59)
[2024-12-11] MEDS: cefTRIAXone 1 GM in SODIUM CHLORIDE 0.9% MINIBAG 100 ML IV STA (09:12)
[2024-12-11] MEDS ORDERED: ONDANSETRON 4 MG/2 ML VIAL IVP PRN (09:32)
[2024-12-11] MEDS ORDERED: ONDANSETRON ODT 4 MG TABLET TL PRN (09:32)
[2024-12-11] MEDS ORDERED: ACETAMINOPHEN 325 MG TABLET PO PRN ×2 (09:32→17:49)
[2024-12-11] MEDS ORDERED: SODIUM CHLORIDE FLUSH 0.9% 10 ML SYRINGE IVP PRN (09:32)
[2024-12-11] MEDS: AZITHROMYCIN INJ 500 MG in SODIUM CHLORIDE 0.9% 250 ML IV STA (10:08)
--- NOTE | 2024-12-11 10:08 | HISTORY & PHYSICAL EXAMINATION ---
Chief Complaint Chief Complaint Chief Complaint: Weakness History of Present Illness Admitted From Admitted From:: Home History Obtained From Records Reviewed: EMR History obtained from: Exam Limitations: Patient with Parkinsons' dementia History of Present Illness HPI Comment/Other: Patient is a 84-year-old male with a history of Parkinson's dementia who presents with worsening and sudden weakness of bilateral lower extremities, loss of balance, and confusion. History was taken from , as patient appears to remain confused. She states that at baseline, he is able to walk with his walker to the washroom and back. Earlier today, when he tried, he fell over, and could not get himself back up. For his Parkinson's disease, he is on carbidopa/levodopa. He has been on a stable dose for a few months. She does not recall the name of his neurologist at this time. She also states that he has had 2 TIAs in the past, but no confirmed strokes. She does not recall the last time that he has had an MRI. In the emergency room, he was normotensive at 140/76, saturating 93% on room air, his respiratory rate was 20, his pulse was 77, and he was afebrile. Per ED documentation, with movement, he dropped his oxygen saturations to the low 80s, and his heart rate increased to 130. As such, he was admitted for the above weakness, in addition to these abnormalities in vital signs. Lab work was reviewedno obvious infiltrates were noted. Chest x-ray shows diffuse interstitial prominence, edema. Procalcitonin is negative. denies any fevers, chills, cough at home. Meds/Allgy Home Medications Ambulatory Orders Medication Instructions Recorded Confirmed aspirin 81 mg tablet,delayed 81 mg PO DAILY 11/23/22 0 10/09/24 release levothyroxine 25 mcg tablet 25 mcg PO QDAC 11/23/22 lisinopril 10 mg tablet 10 mg PO DAILY 11/23/2212/29 pantoprazole 20 mg tablet,delayed 40 mg PO DAILY 11/2310/09/24 release (Protonix) lorazepam 2 mg tablet 2 mg PO HS 03/22/23 10/09/24 metoprolol tartrate 25 mg tablet 25 mg PO DAILY 10/09/24 atorvastatin 20 mg tablet mg 10/09/24 carbidopa 25 mg-levodopa 100 mg tab 10/09/24 tablet Allergies Allergies Allergy/AdvReac Type Severity Reaction Status Date / Time No Known Drug Allergies Allergy Verified 12/11/24 05:21 PFSH Active Problems All Active Problems (Updated 12/11/24 @ 13:33 by Ade Navarro MD) Atrial fibrillation with RVR (Acute) Acute hypoxic respiratory failure (Acute) Dehydration (Acute) Pneumonia (Acute) Parkinson's disease (Acute) Altered mental state (Acute) Acute weakness (Acute) Medical History Medical History Dementia Parkinson disease History of gastroesophageal reflux (GERD) History of hypercholesterolemia History of hypertension History of hypothyroidism Social History Social History Smoking Status: Unknown if ever smoked Do you dip or chew tobacco?: No Do you vape?: No Living arrangement: At home Living Condition: With spouse/s.o. Relationship: Significant other Level: Dependent Do you feel safe in your home environment?: Yes Suffered physical, verbal, emotional, or financial abuse?: No History of Abuse: No Substance Use: other POLST Patient has POLST: No POLST Status: DNR Review of Systems Unable to obtain accurate ROS due to patient's baseline Parkinsons' dementia. Status of ROS: unobtainable due to medical condition and unobtainable due to mental status Prior Level of Functionality: Ambulates with walker. Lives with . Exam Exam Vital Signs: Vital Signs x48h Temp Pulse Pulse Resp BP BP Pulse Ox 12/11/24 12:54 98.1 F 69 26 H 120/77 94 12/11/24 10:24 98.8 F 74 20 128/86 94 12/11/24 08:58 83 24 171/95 H 95 12/11/24 08:36 97.9 F 80 22 149/81 H 94 12/11/24 07:39 81 16 105/67 93 12/11/24 05:46 71 18 134/80 H 99 Constitutional normal general appearance, no apparent distress, average body habitus and alert HENMT normocephalic, head/scalp atraumatic and hearing grossly normal bilaterally Eyes PERRL, EOMs intact bilaterally, conjunctivae normal and no papilledema No facial droop noted. Neck/C-Spine trachea midline Chest inspection of chest normal and palpation of chest normal Respiratory breath sounds equal bilaterally Bibasilar crackles noted in lower lung matos Cardiovascular heart rate abnormal (tachycardic), rhythm abnormal (irregular), no rub and no murmur Gastrointestinal abdomen normal to inspection, abdomen soft to palpation, nontender to palpation and nontender to percussion Genitourinary no CVA tenderness and bladder normal to palpation Extremities Pill-rolling tremor noted in right upper extremity. Cogwheel rigidity noted. Moving all limbs spontaneously. Neurology no focal motor deficit noted and no sensory deficits noted Psychiatry orientation abnormal (disoriented to place) and (disoriented to time) and cooperative Skin skin color normal, no rash and no lesions Conclusion/Plan Problem List (1) Acute weakness: Plan: Patient presented with bilateral lower extremity weakness. Per , this is different from his baseline. Has a history of 2 TIAs, as well as Parkinson's disease. Head CT was completed earlier today which showed no acute intracranial pathology. MRI is ordered, remains pending. PT/OT consulted, appreciate recommendations. (2) Acute hypoxic respiratory failure: Plan: Per ED physician, with movement, patient desaturated down to 80%. Currently is off oxygen. Chest x-ray does show diffuse infiltrates. Echo is ordered. Received 1L of IVF. Hold off on diuresis at this time. No fevers, no chills, no cough, per . Procalcitonin is also negative. Received 1 dose of IV Rocephin and azithromycin. Not continued at this time. (3) Atrial fibrillation with RVR: Plan: Patient just had a Watchman procedure done few months ago. Has not followed up with a tongue and groove machine operator since, and does not know name of tongue and groove machine operator. Continue home metoprolol. Not on anticoagulation as stated above. (4) Parkinson's disease: Plan: Patient remains on Sinemet, which is continued. MRI ordered as above to see if there has been any acute cerebrovascular event versus progression of Parkinson's disease. Qualifiers: Dyskinesia presence: with dyskinesia Fluctuating manifestations: with fluctuating manifestations Qualified Code(s): G20.B2 - Parkinson's disease with dyskinesia, with fluctuations Lab Results 12/11/24 04:47 12/11/24 04:47 Diagnostic Imaging Results Diagnostic Imaging Results: positive Final report reviewed Core Measures Anticipated LOS I expect patient to be DC'd or transferred within 96 hours.: Yes Issues Hospital Issues and Management Plan: None anticipated. DVT/VTE - Prophylaxis VTE/DVT Device ordered at admit?: Yes VTE/DVT Prophylaxis med ordered at admit?: Yes
--- NOTE | 2024-12-11 13:54 | PHARMACY PROGRESS NOTE ---
Best Possible Medication History Admit Date and Time: 12/11/24 [id number] Home Medications Medication Instructions Recorded Confirmed Type aspirin 81 mg tablet,delayed 81 mg PO DAILY 11/23/22 0 12/11/24 History release levothyroxine 25 mcg tablet 25 mcg PO QDAC 11/23/22 History lisinopril 10 mg tablet 10 mg PO DAILY 11/23/2202/28 History lorazepam 2 mg tablet 2 mg PO BID PRN anxiety 03/0712/11/24 History metoprolol tartrate 25 mg tablet 12.5 mg PO HS 4 12/11/24 History atorvastatin 20 mg tablet 20 mg PO DAILY 10/09/2402/28 History carbidopa 25 mg-levodopa 100 mg 1 tab PO TID 10/09/24 12/11/24 History tablet acetaminophen 325 mg tablet 325 mg PO Q4H PRN pain 02/2812/11/24 History (Tylenol) ascorbic acid (vitamin C) 500 mg 500 mg PO DAILY 12/1112/11/24 History tablet (C-500) baclofen 10 mg tablet 10 mg PO TID 12/11/24 History metoprolol tartrate 25 mg tablet 25 mg PO DAILY 12/11/24 History multivitamin (Multiple Vitamins 1 tab PO DAILY 5 12/11/24 History tablet) pantoprazole 40 mg tablet,delayed 40 mg PO BID 5 12/11/24 History release trazodone 50 mg tablet 50 mg PO HS 12/11/24 5 History Processed by: Pharmacy Medications reviewed in ED?: No Medication History completed: Yes Patient Interview: Pt unable to participate Secondary Source(s): Spouse/Significant other and Insurance records [facility] Statement: As the person ultimately responsible for medication therapy, providers are able to order a medication from an existing home medication list in [facility] via the "Reconcile Routine" prior to Confirmation of that medication by underwriting support manager. Such practice is discouraged except when the physician, in their clinical judgment, deems that a medical need exists for a medication without regard to previous use.
[2024-12-11] MEDS ORDERED: LORazepam 1 MG TABLET PO PRN (17:49)
--- NOTE | 2024-12-11 17:55 | ECHO Report ---
Version: 1 Study ID: [id number] [id number] Adult Echocardiogram Report Name: SILVINO ANDUJAR Study Date: 12/11/2024, 3: 41 PM BP: 120 / 77 mmHg Patient Location: [id number] HR: 75 bpm : 1940 (MM/DD/YYYY) Gender: Male Height: 71 in Age: 84 Years Weight: 220.462 lb Reason For Study: fluid overload History: Afib, Parkinsons, altered mental state, acute weakness, pneumonia, hypoxia with respiratory failure Procedure: A complete two-dimensional transthoracic echocardiogram was performed (2D, M- mode, Doppler and color flow Doppler). Indication: Evaluate right ventricular function and pulmonary pressures. The patient was comfortable and cooperative throughout the procedure. The study was done with the patient in the supine position, due to inability to lie on the left side. Some views necessary for characterizing the patient's pathophysiology were unavailable due to the inability to position the patient. This was a technically difficult study with limited views of the left ventricle. The underlying rhythm was atrial fibrillation. Interpretation Summary 1. he left ventricle is normal in size. The visual left ventricular ejection fraction is estimated at 55 to 60%. 2. The right ventricle is normal in size and function. 3. No significant valvular disease. Left Ventricle: The left ventricle is normal in size. There is normal left ventricular wall thickness. The visual left ventricular ejection fraction is estimated at 55 to 60%. Regional wall motion abnormalities cannot be excluded due to limited visualization. Diastolic function could not be accurately assessed due to atrial fibrillation. Right Ventricle: The right ventricle is not well visualized. The right ventricle is normal in size and function. The right ventricular systolic function is normal. Aortic Valve: Aortic valve sclerosis is present without stenosis. No hemodynamically significant valvular aortic stenosis. Trace aortic regurgitation is present. Mitral Valve: The mitral valve leaflets appear thickened, but with normal motion. No evidence of mitral stenosis is seen. There is trace mitral regurgitation. Tricuspid Valve: The tricuspid valve is visually normal in structure and function. There is no tricuspid stenosis. Mild tricuspid regurgitation present. Pulmonic Valve: The pulmonic valve is not well seen. There is no pulmonic valvular stenosis. There is no pulmonic valvular regurgitation. Left Atrium: The left atrium is mildly dilated. The left atrial volume indexed to body surface area is 36 ml/m2. This refers to the maximal volume measured prior to mitral valve opening. Right Atrium: The right atrium is mildly dilated. The inferior vena cava is normal in diameter (<2.1cm) but collapse <50% with sniff (estimated right atrial pressure 5-10mmHg). Atrial Septum: There is no Doppler evidence for an atrial septal defect. Aorta: The diameter of the ascending aorta is 3.7 cm. The aortic root measures 3.7 cm in diameter. Aortic root is dilated. Pulmonary Artery: The pulmonary artery is not well visualized, but is probably normal size. The right ventricular systolic pressure is 26mmHg. Inferior vena cava dynamics indicate normal right atrial pressures. Pericardium/Pleural Space: There is no pericardial effusion. No pleural effusion is seen. Doppler Measurements & Calculations Ao max P.3 mmHg Ao V2 max: 104.2 cm/sec LV V1 max: 67.9 cm/sec LV V1 max P.85 mmHg PA max P.10 mmHg PA V2 max: 72.4 cm/sec RAP systole: 8.0 mmHg TR max P.6 mmHg TR max namrata: 209.8 cm/sec MMode/2D Measurements & Calculations Ao root diam: 3.7 cm EF (est.): 50.4 % ESV(sp4-el): 73.2 ml Heart Rate: 75.0 BPM Height (metric): 180.3 cm IVSd: 1.18 cm LA A4C-A/L: 21.0 cm² LA dimension: 5.7 cm LA ESV-A/L: 58.9 ml LAV(MOD-sp2): 79.0 ml LAV(MOD-sp4): 82.0 ml LVIDd: 4.7 cm LVIDs: 3.0 cm LVPWd: 1.24 cm Systolic Pressure: 120.0 mmHg Other Measurements & Calculations Ao root diam: 3.7 cm Ao V2 max: 104.2 cm/sec BMI: 30.7 kilograms/m² BSA: 2.20 m² BSA(Haycock): 2.26 m² Diastolic Pressure: 77.0 mmHg EDV(Teich): 100.5 ml EF (est.): 50.4 % EF(Teich): 65.1 % ESV(sp4-el): 73.2 ml ESV(Teich): 35.0 ml FS: 35.6 % Heart Rate: 75.0 BPM Height (metric): 180.3 cm IVSd: 1.18 cm LA A4C-A/L: 21.0 cm² LA dimension: 5.7 cm LA ESV-A/L: 58.9 ml LAV(MOD-sp2): 79.0 ml LAV(MOD-sp4): 82.0 ml LV V1 max: 67.9 cm/sec LVIDd: 4.7 cm LVIDs: 3.0 cm LVPWd: 1.24 cm PA max P.10 mmHg PA V2 max: 72.4 cm/sec RAP systole: 8.0 mmHg RVSP(TR): 25.6 mmHg Systolic Pressure: 120.0 mmHg TR max P.6 mmHg TR max namrata: 209.8 cm/sec TV max P.6 mmHg Weight (metric): 100.0 kg EF(sp-el): 50.0 % Tomás Lucio MD 12/11/2024, 5: 54 PM Ordering Physician: Ade Navarro Referring Physician: Mateo Daly Performed By: Corinne Gant RDCS
--- NOTE | 2024-12-11 18:02 | MRI Report ---
PROCEDURE: MRI Brain WO INDICATIONS: acute cva/progression of parkinson TECHNIQUE: Noncontrast axial T1 spin echo, axial T2 fast spin echo, sagittal and axial FLAIR, coronal T2 fast spin echo, axial gradient echo, axial diffusion and ADC through the brain. COMPARISON: CT head 12/11/2024. FINDINGS: Image quality: Excellent. CSF Spaces: Basal cisterns are patent. No extra-axial fluid collections. Ventricles are symmetric in size and shape. Brain: No intracranial masses or hemorrhage. Scattered and confluent foci of T2/FLAIR hyperintense signal in the subcortical and periventricular white matter are compatible with chronic microvascular ischemic changes. There is generalized cerebral and cerebellar parenchymal volume loss with resulting sulcal and ventricular prominence. Diffusion-weighted images demonstrate no acute ischemic insult. No chronic ischemic insults. Normal intravascular flow voids are present. Skull and face: Calvarium has normal marrow signal. Orbits appear normal. Sinuses: Sinuses and mastoids are clear. IMPRESSION: 1.No acute intracranial hemorrhage or recent infarct. 2.Chronic microvascular ischemic changes and generalized parenchymal volume loss. Reviewed by: Jonathan Archuleta MD on 12/11/2024 6:01 PM PDT Approved by: Jonathan Archuleta MD on 12/11/2024 6:01 PM PDT Station ID: [id number]
[2024-12-11] MEDS: BACLOFEN 10 MG TABLET PO SCH (18:55)
[2024-12-11] MEDS: PANTOPRAZOLE 40 MG TABLET PO SCH (18:56)
[2024-12-11] MEDS: SODIUM CHLORIDE FLUSH 0.9% 10 ML SYRINGE IVP SCH (18:56)
[2024-12-11] MEDS: METOPROLOL TARTRATE 25 MG TABLET PO SCH (20:56)
[2024-12-11] MEDS: traZODone 50 MG TABLET PO SCH (20:58)
[2024-12-11] MEDS: CARBIDOPA/LEVODOPA 25 MG/100 MG TABLET PO SCH (21:01)
[2024-12-12] MEDS: LEVOTHYROXINE 25 MCG TABLET PO SCH (06:03)
[2024-12-12 07:57] LABS: CALCIUM 8.8 mg/dL (8.5-10.3); CREATININE 1.1 mg/dL (0.6-1.3); POTASSIUM 3.8 mmol/L (3.5-4.5)
[2024-12-12 07:59] LABS: HGB - HEMOGLOBIN 12.4 g/dL (14.0-18.0); MEAN CORPUSCULAR HGB CONC 33.5 g/dL (32.0-36.0); MEAN CORPUSCULAR VOLUME 95.4 fL (80.0-94.0); MEAN PLATELET VOLUME 10.9 fL (7.4-11.4); RED BLOOD COUNT 3.88 10^6/uL (4.70-6.10); RED CELL DISTRIBUTION WIDTH 15.9 % (12.0-15.0); WHITE BLOOD COUNT 7.1 x10^3/uL (4.8-10.8)
[2024-12-12] MEDS: METOPROLOL TARTRATE 25 MG TABLET PO SCH (12:36)
[2024-12-12] MEDS: MULTIVITAMIN TABLET PO SCH (12:37)
[2024-12-12] MEDS: ATORVASTATIN 10 MG TABLET PO SCH (12:37)
[2024-12-12] MEDS: ASCORBIC ACID 500 MG TABLET PO SCH (12:37)
[2024-12-12] MEDS: lisinopriL 5 MG TABLET PO SCH (12:38)
[2024-12-12] MEDS: ASPIRIN EC 81 MG TABLET PO SCH (12:38)
[2024-12-12 13:03] VITALS: O2SAT 97
--- NOTE | 2024-12-12 14:31 | PT Plan of Care ---
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 PMH includes PD and pt takes daily carbidopa/levodopa but per report, his mobility has rapidly declined over the last several days. Prior to this pt was ambulating household distances without AD per pt's report. not present during PT eval so not able to confirm home environment or PLOF. Upon PT eval today, pt denies pain and is able to follow 2-3 step cueing with clear, direct verbal and visual cues. Pt requires overall mod to maxAx2 for bed mobility and transfers. STS c FWW and short distance amb x10' with FWW and minAx1-2. Pt is a high fall risk per Tinetti score of 14/28. Given above impairments and high fall risk, plan for continued skilled PT in acute setting to progress upright tolerance and ambulation distance. When medically clear PT rec dc to SNF as pt is below reported baseline and unclear whether has CG support at home. If pt does dc home, he will need 24/7 care, HHPT/OT/ bathaide, and FWW for short distances, wc for long distances at this time. Goals Improve bed mobility to: Minimal Assist Improve supine to sit to: Minimal Assist Improve sit to stand to: Minimal Assist Improve pivot transfer ability Minimal Assist to: Improve sit to supine to: Minimal Assist Improve gait ability to: CGA Assistive Device Used: Front Wheeled Walker PT Plan of Care Frequency 1-2x/day Duration Until goals are met Discharge Recommendations Discharge Location Snf Facility DC Equipment Recommended Front wheeled walker,Wheelchair Transport Needs at Discharge B.L.S Other BLS d/t confusion, poor upright tolerance.
--- NOTE | 2024-12-12 14:50 | Discharge Summary ---
"Discharge Summary Admit Date: 12/11/24 Discharge Date: 12/12/24 Discharging Provider: Dr. Ade Navarro Primary Care Provider: Nilson Julio MD Code Status: Do Not Attempt Resuscitation Discharge Facility Name: Home with Home Health DIAGNOSES Admission Diagnoses: Acute weakness Acute hypoxic respiratory failure Atrial fibrillation with RVR Parkinson's disease Discharge Diagnoses with Status of Each Condition: Acute weaknessresolved. MRI of the brain was completed with no acute changes noted. PT/OT did work with the patient. Would recommend SNF. Spoke with regarding this. She would prefer home with home health. Acute hypoxic respiratory failurePer ED physician, with movement, patient desaturated down to 80%. Has not required oxygen during his stay here. Chest x-ray with some infiltrates noted. No fevers, no cough, no white count. Procalcitonin was also negative. Echo was ordered with no valvular abnormalities or heart failure noted. Atrial fibrillation with RVRpatient had Watchman procedure done a few months ago, home metoprolol continued with good control of his heart rate. Parkinson's diseasecontinue home Sinemet. Patient does not recall neurologist name, nor to his . Advised to follow-up with them in the outpatient setting. May need dose adjustment with this increased weakness, stiffness. HPI History of Present Illness: Patient is a 84-year-old male with a history of Parkinson's dementia who presents with worsening and sudden weakness of bilateral lower extremities, loss of balance, and confusion. History was taken from , as patient appears to remain confused. She states that at baseline, he is able to walk with his walker to the washroom and back. Earlier today, when he tried, he fell over, and could not get himself back up. For his Parkinson's disease, he is on carbidopa/levodopa. He has been on a stable dose for a few months. She does not recall the name of his neurologist at this time. She also states that he has had 2 TIAs in the past, but no confirmed strokes. She does not recall the last time that he has had an MRI. In the emergency room, he was normotensive at 140/76, saturating 93% on room air, his respiratory rate was 20, his pulse was 77, and he was afebrile. Per ED documentation, with movement, he dropped his oxygen saturations to the low 80s, and his heart rate increased to 130. As such, he was admitted for the above weakness, in addition to these abnormalities in vital signs. Lab work was reviewedno obvious infiltrates were noted. Chest x-ray shows diffuse interstitial prominence, edema. Procalcitonin is negative. denies any fevers, chills, cough at home. CONSULTS | PROCEDURES Consultations: PT, SW Procedures: MRI brain, ECHO HOSPITAL COURSE Hospital Course: Patient is a 84 year old male with a history of Parkinson's disease who presented with worsening weakness of his bilateral lower extremities. MRI of the brain was done which showed no acute changes. Physical therapy was also consulted who recommended SNF. is spoken with, and she is comfortable with home with home health. She is a retired nurse, and is comfortable with his caregiving. When he was first admitted, the ED physician mentioned that he desaturated down to the low 80s. Chest x-ray was done showed some infiltrates. Echo was completed which showed no valvular abnormalities or heart failure. Procalcitonin was negative. He received 1 dose of IV antibiotics, but was not continued. His oxygen saturation remained within normal limits the whole stay. He was also found to be in atrial fibrillation with RVR per the ED physician. He was started back on his home medications. His heart rate has been within normal limits today. Overall, patient is stable for discharge home. ALLERGIES Allergies Allergy/AdvReac Type Severity Reaction Status Date / Time No Known Drug Allergies Allergy Verified 12/11/24 05:21 MEDICATIONS Ambulatory Orders Medication Instructions Recorded Confirmed aspirin 81 mg tablet,delayed 81 mg PO DAILY 11/23/22 0 12/11/24 release levothyroxine 25 mcg tablet 25 mcg PO QDAC 11/23/22 lisinopril 10 mg tablet 10 mg PO DAILY 11/23/2202/28 lorazepam 2 mg tablet 2 mg PO BID PRN anxiety 03/0712/11/24 metoprolol tartrate 25 mg tablet 12.5 mg PO HS 4 12/11/24 atorvastatin 20 mg tablet 20 mg PO DAILY 10/09/2402/28 carbidopa 25 mg-levodopa 100 mg 1 tab PO TID 10/09/24 12/11/24 tablet acetaminophen 325 mg tablet 325 mg PO Q4H PRN pain 02/2812/11/24 (Tylenol) ascorbic acid (vitamin C) 500 mg 500 mg PO DAILY 12/1112/11/24 tablet (C-500) baclofen 10 mg tablet 10 mg PO TID 12/11/24 metoprolol tartrate 25 mg tablet 25 mg PO DAILY 12/11/24 multivitamin (Multiple Vitamins 1 tab PO DAILY 5 12/11/24 tablet) pantoprazole 40 mg tablet,delayed 40 mg PO BID 5 12/11/24 release trazodone 50 mg tablet 50 mg PO HS 12/11/24 5 PHYSICAL EXAM AT DISCHARGE Vital Signs: Vital Signs x48h Temp Pulse Pulse Pulse Pulse Resp BP 12/12/24 13:20 86 88 12/12/24 13:00 98.2 F 94 18 12/12/24 12:36 74 135/82 H 12/12/24 08:33 97.9 F 74 16 BP BP BP BP Pulse Ox 12/12/24 13:20 141/106 H 137/90 H 12/12/24 13:00 125/70 97 12/12/24 12:36 12/12/24 08:33 135/82 H 95 General Appearance: positive No acute distress, Alert and Anxious Eyes Bilateral: positive Normal inspection, PERRL and EOMI ENT: positive ENT inspection nml, Pharynx nml and No signs of dehydration Neck: positive Nml inspection, Thyroid nml, No JVD and Trachea midline Respiratory: positive Chest non-tender, No respiratory distress and Breath sounds nml Cardiovascular: positive No murmur and Irregularly irregular; negative Tachycardia Peripheral Pulses: positive 2+ Abdomen: positive Non-tender and No distention; negative Hepatomegaly or Splenomegaly Back: positive Nml inspection; negative CVA tenderness (R) or CVA tenderness (L) Skin: positive Color nml, No rash, Warm and Dry Extremities: positive Non-tender, Full ROM and No pedal edema Neurologic/Psychiatric: positive Disoriented to time, Weakness and Other (cogwheel rigidity noted, R hand resting pill rolling tremor ) LABS 12/12/24 07:36 12/12/24 07:36 DIAGNOSTIC IMAGING Diagnostic Imaging Results: Final report reviewed FOLLOW UP Follow Up: Follow up with neurologist. Follow up with PCP. TIME SPENT Time Spent in Discharge (Minutes): 35 Discharge Plan Discharge Patient Disposition: 06 Home Health Service Condition: Fair Prescriptions: Continued lisinopril 10 MG tablet 10 mg PO DAILY levothyroxine 25 MCG tablet 25 mcg PO QDAC aspirin 81 MG tablet,delayed release (DR/EC) 81 mg PO DAILY lorazepam 2 MG tablet 2 mg PO BID PRN (Reason: anxiety) Patient Comments: TAKE 1 TABLET BY MOUTH AT BEDTIME metoprolol tartrate 25 MG tablet 12.5 mg PO HS atorvastatin 20 mg tablet 20 mg PO DAILY Patient Comments: TAKE 1 TABLET BY MOUTH EVERY EVENING carbidopa-levodopa 25-100 mg tablet 1 tab PO TID Patient Comments: TAKE 1 TABLET BY MOUTH THREE TIMES DAILY trazodone 50 mg tablet 50 mg PO HS Patient Comments: TAKE 1 TABLET BY MOUTH AT BEDTIME baclofen 10 mg tablet 10 mg PO TID Patient Comments: TAKE 1 TABLET BY MOUTH THREE TIMES DAILY pantoprazole 40 mg tablet,delayed release (DR/EC) 40 mg PO BID Patient Comments: TAKE 1 TABLET BY MOUTH TWICE DAILY BEFORE MEALS metoprolol tartrate 25 mg tablet 25 mg PO DAILY multivitamin [Multiple Vitamins] Tablet 1 tab PO DAILY acetaminophen [Tylenol] 325 mg tablet 325 mg PO Q4H PRN (Reason: pain) ascorbic acid (vitamin C) [C-500] 500 mg tablet 500 mg PO DAILY Diet: Regular Health Concerns: You came in for weakness that was different from your baseline. As such, we got an MRI of your brain, which did not show any acute changes. This includes any new strokes or bleeds. I would advise that you follow-up with your neurologist to see if you need any adjustment of your Sinemet. There was also some concern about your breathing. I do not think that you have a pneumonia. We did get an ECHO of your heart, which shows that you have no heart failure or any valvular heart disease. We had the physical therapist evaluate you, and they did recommend rehab. I discussed this with your . I think you are going to do great at home with home health care as well. Please continue to follow closely with your neurologist and your primary care provider. Print Language: Malay Patient Instructions: Parkinson Disease, Parkinson Disease Caregiver Stand Alone Forms: PCP List Follow-up Care: Nilson Julio MD [Primary Care Provider] -"
[2024-12-12 16:34] VITALS: BP 138/86; TEMP 98.1
== END 2024-12-12 22:14 | disposition home health service (06) ==
LOC: ED 04:05 → MS3 04:05
PROVIDERS: ADMIT Internal Medicine; ATTEND Internal Medicine
DX: Z79.899 Other long term (current) drug therapy; I48.91 Unspecified atrial fibrillation; G20.B2 Parkinson's disease with dyskinesia, with fluctuations; Z79.82 Long term (current) use of aspirin; E03.9 Hypothyroidism, unspecified; Z86.73 Personal history of transient ischemic attack (TIA), and cerebral infarction without residual deficits; R53.1 Weakness; I10 Essential (primary) hypertension; Z66 Do not resuscitate; R41.82 Altered mental status, unspecified; Z79.890 Hormone replacement therapy; J96.01 Acute respiratory failure with hypoxia; R32 Unspecified urinary incontinence; R15.9 Full incontinence of feces; I44.4 Left anterior fascicular block; Z20.828 Contact with and (suspected) exposure to other viral communicable diseases; E78.00 Pure hypercholesterolemia, unspecified; I49.3 Ventricular premature depolarization; J18.9 Pneumonia, unspecified organism; R29.898 Other symptoms and signs involving the musculoskeletal system; E86.0 Dehydration; R94.31 Abnormal electrocardiogram [ECG] [EKG]; F02.80 Dementia in other diseases classified elsewhere, unspecified severity, without behavioral disturbance, psychotic disturbance, mood disturbance, and anxiety; Z20.818 Contact with and (suspected) exposure to other bacterial communicable diseases; Z20.822 Contact with and (suspected) exposure to COVID-19